=== PATIENT | male | born 1950 | race Caucasian/White ===

== ENCOUNTER → 2020-09-30 08:33 | Outpatient (BNVA) | payer MEDICARE, BC, SELFPAY | PROVIDERS: PCP Family Medicine; Referring Provider Physician Assistant Medical; Visit Provider Psychiatry & Neurology Neurology | DX: M79.602 Pain in left arm (principal); R25.1 Tremor, unspecified; G43.109 Migraine with aura, not intractable, without status migrainosus; R29.2 Abnormal reflex; I10 Essential (primary) hypertension; E78.5 Hyperlipidemia, unspecified; R73.03 Prediabetes | CPT/HCPCS: 99205; G2212 ==

== ENCOUNTER → 2021-07-27 12:15 | Outpatient (BNVA) | payer MEDICARE, BC, SELFPAY | PROVIDERS: PCP Family Medicine; Referring Provider Family Medicine; Visit Provider Psychiatry & Neurology Neurology | DX: G43.109 Migraine with aura, not intractable, without status migrainosus (principal); R25.1 Tremor, unspecified; I10 Essential (primary) hypertension | CPT/HCPCS: 99214 ==

== ENCOUNTER → 2022-02-24 13:22 | Outpatient (BNVA) | payer MEDICARE, BC, SELFPAY | PROVIDERS: PCP Family Medicine; Referring Provider Family Medicine; Visit Provider Psychiatry & Neurology Neurology | DX: R62.7 Adult failure to thrive (principal); R42 Dizziness and giddiness; F07.81 Postconcussional syndrome; R25.1 Tremor, unspecified; G43.109 Migraine with aura, not intractable, without status migrainosus | CPT/HCPCS: 99215; G2212 ==

== ENCOUNTER → 2022-05-17 13:06 | Outpatient (BNVA) | payer MEDICARE, BC, SELFPAY | PROVIDERS: PCP Family Medicine; Referring Provider Family Medicine; Visit Provider Psychiatry & Neurology Neurology | DX: M50.022 Cervical disc disorder at C5-C6 level with myelopathy (principal); M48.061 Spinal stenosis, lumbar region without neurogenic claudication; R29.6 Repeated falls; R25.1 Tremor, unspecified; R55 Syncope and collapse; F07.81 Postconcussional syndrome | CPT/HCPCS: 99215 ==

== ENCOUNTER 2022-06-03 08:27 | Outpatient (CLI) | payer MEDICARE, BC, SELFPAY ==
--- NOTE | 2022-06-03 08:15 | RT.EKG_ITS ---
APPROVED REPORT Exam: Resting ECG Reason for Exam: SVT Patient Location: O HR:68 bpm ECG Measurements Heart Rate 68 AXIS AL [id number] P [id number] QRSd 95 QRS 85 QT 413 T 52 QTc 440 Conclusion Sinus rhythm Borderline right axis deviation...QRS axis ( 81, 90) Late transition
== END 2022-06-03 08:28 | disposition home or self-care (01) ==
LOC: DI.CARD 08:28
PROVIDERS: PCP Family Medicine; Visit Provider Internal Medicine Cardiovascular Disease
DX: I47.1 Supraventricular tachycardia (principal); R55 Syncope and collapse
CPT/HCPCS: 93010

== ENCOUNTER → 2022-06-03 11:14 | Outpatient (BNVA) | payer MEDICARE, BC, SELFPAY | PROVIDERS: PCP Family Medicine; Referring Provider Family Medicine; Visit Provider Internal Medicine Cardiovascular Disease | DX: I50.30 Unspecified diastolic (congestive) heart failure (principal); I47.1 Supraventricular tachycardia; I89.0 Lymphedema, not elsewhere classified | CPT/HCPCS: 93005; 99203; 99214 ==

== ENCOUNTER → 2022-11-22 13:05 | Outpatient (BNVA) | payer MEDICARE, BC, SELFPAY | PROVIDERS: PCP Family Medicine; Referring Provider Family Medicine; Visit Provider Psychiatry & Neurology Neurology | DX: R26.89 Other abnormalities of gait and mobility (principal); M48.061 Spinal stenosis, lumbar region without neurogenic claudication; Z87.820 Personal history of traumatic brain injury; G43.109 Migraine with aura, not intractable, without status migrainosus; R25.1 Tremor, unspecified; R55 Syncope and collapse | CPT/HCPCS: 99214 ==

== ENCOUNTER → 2023-03-09 11:10 | Outpatient (BNVA) | payer MEDICARE, BC, SELFPAY | PROVIDERS: PCP Family Medicine; Referring Provider Family Medicine; Visit Provider Internal Medicine Cardiovascular Disease | DX: I11.0 Hypertensive heart disease with heart failure (principal); I50.30 Unspecified diastolic (congestive) heart failure | CPT/HCPCS: 99213 ==

== ENCOUNTER → 2023-04-04 14:30 | Outpatient (BNVA) | payer MEDICARE, BC, SELFPAY | PROVIDERS: PCP Family Medicine; Referring Provider Family Medicine; Visit Provider Psychiatry & Neurology Neurology | DX: G43.109 Migraine with aura, not intractable, without status migrainosus (principal); R25.1 Tremor, unspecified; R55 Syncope and collapse; R26.89 Other abnormalities of gait and mobility; Z87.820 Personal history of traumatic brain injury; R35.1 Nocturia; G95.9 Disease of spinal cord, unspecified | CPT/HCPCS: 99214 ==

== ENCOUNTER → 2023-07-04 12:16 | Outpatient (BNVA) | payer MEDICARE, BC, SELFPAY | PROVIDERS: PCP Family Medicine; Visit Provider Psychiatry & Neurology Neurology | DX: G43.109 Migraine with aura, not intractable, without status migrainosus (principal); R55 Syncope and collapse; R25.1 Tremor, unspecified; I10 Essential (primary) hypertension; F07.81 Postconcussional syndrome; G95.9 Disease of spinal cord, unspecified | CPT/HCPCS: 99215 ==

== ENCOUNTER → 2023-10-03 11:02 | Outpatient (BNVA) | payer MEDICARE, BC, SELFPAY | PROVIDERS: PCP Family Medicine; Referring Provider Family Medicine; Visit Provider Psychiatry & Neurology Neurology | DX: G43.109 Migraine with aura, not intractable, without status migrainosus (principal); R25.1 Tremor, unspecified; R55 Syncope and collapse; F07.81 Postconcussional syndrome; G95.9 Disease of spinal cord, unspecified | CPT/HCPCS: 99215 ==

== ENCOUNTER → 2023-12-06 12:44 | Outpatient (BNVA) | payer MEDICARE, BC, SELFPAY | PROVIDERS: PCP Family Medicine; Referring Provider Family Medicine; Visit Provider Psychiatry & Neurology Neurology | DX: F07.81 Postconcussional syndrome (principal); G95.9 Disease of spinal cord, unspecified; G43.109 Migraine with aura, not intractable, without status migrainosus; R25.1 Tremor, unspecified; R55 Syncope and collapse | CPT/HCPCS: 99215 ==

== ENCOUNTER → 2023-12-14 10:51 | Outpatient (BNVA) | payer MEDICARE, BC, SELFPAY | PROVIDERS: PCP Family Medicine; Referring Provider Family Medicine; Visit Provider Nurse Practitioner Gerontology | DX: N40.1 Benign prostatic hyperplasia with lower urinary tract symptoms (principal); R35.1 Nocturia; N13.8 Other obstructive and reflux uropathy; N52.9 Male erectile dysfunction, unspecified | CPT/HCPCS: 51798; 99215 ==

== ENCOUNTER → 2024-01-17 07:12 | Outpatient (BNVA) | payer MEDICARE, BC, SELFPAY | PROVIDERS: PCP Family Medicine; Referring Provider Family Medicine; Visit Provider Psychiatry & Neurology Neurology | DX: G43.109 Migraine with aura, not intractable, without status migrainosus (principal); R25.1 Tremor, unspecified; R55 Syncope and collapse; F07.81 Postconcussional syndrome; G95.9 Disease of spinal cord, unspecified | CPT/HCPCS: 99215 ==

== ENCOUNTER → 2024-02-06 09:50 | Outpatient (BNVA) | payer MEDICARE, BC, SELFPAY | PROVIDERS: PCP Family Medicine; Referring Provider Family Medicine; Visit Provider Physician Assistant Surgical | DX: G47.33 Obstructive sleep apnea (adult) (pediatric) (principal); R06.09 Other forms of dyspnea | CPT/HCPCS: 99215 ==

== ENCOUNTER → 2024-04-17 14:46 | Outpatient (BNVA) | payer MEDICARE, BC, SELFPAY | PROVIDERS: PCP Family Medicine; Referring Provider Family Medicine; Visit Provider Psychiatry & Neurology Neurology | DX: G43.109 Migraine with aura, not intractable, without status migrainosus (principal); F07.81 Postconcussional syndrome; G95.9 Disease of spinal cord, unspecified; R25.1 Tremor, unspecified; R55 Syncope and collapse | CPT/HCPCS: 99215 ==

== ENCOUNTER → 2024-04-18 10:31 | Outpatient (BNVA) | payer MEDICARE, BC, SELFPAY | PROVIDERS: PCP Family Medicine; Referring Provider Family Medicine; Visit Provider Physician Assistant Surgical | DX: G47.33 Obstructive sleep apnea (adult) (pediatric) (principal); R06.09 Other forms of dyspnea | CPT/HCPCS: 99214 ==

== ENCOUNTER 2024-04-25 08:39 | Outpatient (CLI) | payer MEDICARE, BC, SELFPAY ==
--- NOTE | 2024-04-25 08:30 | RT.EKG_ITS ---
APPROVED REPORT Exam: Resting ECG Reason for Exam: SVT Patient Location: O HR:66 bpm ECG Measurements Heart Rate 66 AXIS GA 274 P 166 QRSd 112 QRS 58 QT 413 T 66 QTc 433 Conclusion Sinus or ectopic atrial rhythm...P axis (-45,135) First-degree AV block
== END 2024-04-25 08:40 | disposition home or self-care (01) ==
LOC: DI.CARD 08:39
PROVIDERS: PCP Family Medicine; Visit Provider Internal Medicine Cardiovascular Disease
DX: R06.09 Other forms of dyspnea (principal); I47.10 Supraventricular tachycardia, unspecified
CPT/HCPCS: 93010

== ENCOUNTER → 2024-04-25 10:52 | Outpatient (BNVA) | payer MEDICARE, BC, SELFPAY | PROVIDERS: PCP Family Medicine; Visit Provider Internal Medicine Cardiovascular Disease | DX: I44.0 Atrioventricular block, first degree (principal); R06.09 Other forms of dyspnea; I50.30 Unspecified diastolic (congestive) heart failure | CPT/HCPCS: 93005; 99213 ==

== ENCOUNTER → 2024-06-13 10:02 | Outpatient (BNVA) | payer MEDICARE, BC, SELFPAY | PROVIDERS: PCP Family Medicine; Referring Provider Family Medicine; Visit Provider Nurse Practitioner Gerontology | DX: N40.1 Benign prostatic hyperplasia with lower urinary tract symptoms (principal); N13.8 Other obstructive and reflux uropathy; R35.1 Nocturia; R35.0 Frequency of micturition; N52.9 Male erectile dysfunction, unspecified | CPT/HCPCS: 51798; 99214 ==

== ENCOUNTER → 2024-08-29 13:56 | Outpatient (BNVA) | payer MEDICARE, BC, SELFPAY | PROVIDERS: PCP Family Medicine; Referring Provider Family Medicine; Visit Provider Nurse Practitioner Gerontology | DX: N40.1 Benign prostatic hyperplasia with lower urinary tract symptoms (principal); N13.8 Other obstructive and reflux uropathy; N39.0 Urinary tract infection, site not specified | CPT/HCPCS: 99213 ==

== ENCOUNTER → 2024-09-24 08:00 | Outpatient (BNVA) | payer MEDICARE, BC, SELFPAY | PROVIDERS: PCP Family Medicine; Referring Provider Family Medicine; Visit Provider Nurse Practitioner Gerontology | DX: N40.1 Benign prostatic hyperplasia with lower urinary tract symptoms (principal); N13.8 Other obstructive and reflux uropathy; R33.9 Retention of urine, unspecified; N28.1 Cyst of kidney, acquired; N39.0 Urinary tract infection, site not specified | CPT/HCPCS: 99213 ==

== ENCOUNTER 2024-10-06 13:58 | Inpatient (IN) | payer MEDICARE, BC, SELFPAY ==
[2024-10-06] VITALS (9 sets, daily range): BP systolic 130–172; BP diastolic 61–110; PULSE 63–77; RESP 3–20; TEMP 35.2–35.7; O2SAT 92–97
--- NOTE | 2024-10-06 | DI.CT_ITS ---
Exam(s) CT CHEST WO EXAM: CT CHEST WO CLINICAL HISTORY: failed outpatient pneumonia regimen. TECHNIQUE: Multi planar reconstructions were performed. CONTRAST MATERIAL: None COMPARISON: No exams were available for comparison FINDINGS: CHEST: LUNGS: There are extensive ground-glass and confluent infiltrates throughout both lungs involving all lobes and there are also moderate-large size bilateral non loculated appearing pleural effusions. T here is some volume loss in basal segments of both lower lobes related to the pleural effusions. The re is some calcification within basal segments of the right lower lobe. MEDIASTINUM: Slightly prominent hilar lymph nodes. Some lymph nodes in the right hilum are calcified . There is also noncalcified subcarinal adenopathy. There is no adenopathy in the anterior mediasti nal fat. There are multiple small sub cm lymph nodes are noted in the supraclavicular regions on bot h sides the neck. There is no axillary adenopathy. CARDIAC: Heart size is upper normal. There is no pericardial effusion.Caliber of the thoracic aorta is within normal limits. VISUALIZED UPPER ABDOMEN:No adrenal masses. No splenomegaly. Partially included kidneys reveal a 2. 5 cm benign appearing cyst in left kidney. Gallbladder appears moderately distended but not obviousl y edematous. Gallbladder is only partially included in the field of view. OSSEOUS: No significant osseous lesions.No fractures.. IMPRESSION: 1. There are stents of bilateral pulmonary infiltrates involving all lobes both lungs. Also moderate -large bilateral non loculated pleural effusions. 2. There are enlarged subcarinal lymph nodes.. There are also multiple small sub cm supraclavicular lymph nodes. No axillary adenopathy evident. Report discuss by phone with the referring hospitalist 10/06/2024 at 5:40 p.m. RADIATION DOSE DELIVERED: 631.32mGy.cm Total DLP DATA REPOSITORY: All CT scans at this facility are submitted to the National Radiology Data Registry (NRDR) Dose Index Registry (DIR) with the [employer] (ACR). RADIATION OPTIMIZATION: All CT scans at this facility use at least one of these dose optimization te chniques: automated exposure control; mA and/or kV adjustment per patient size (includes targeted exa ms where dose is matched to clinical indication); or iterative reconstruction.
--- NOTE | 2024-10-06 15:34 | HPE_ITS ---
Date of service: 10/06/24 Time of Service: 15:35 Assessment and Plan Assessment and plan (1) Incomplete emptying of bladder: Status: Acute Assessment and plan: In reviewing his chart it was noted that he has had multiple UTIs and was seen by urology telehealth. I will repeat a urinalysis with a reflex culture. (2) Hypertension: Assessment and plan: Awaiting an updated home med list. His vital signs at the other institution were a blood pressure of 150/73. (3) Hyperkalemia: Status: Acute Assessment and plan: Started on Lokelma will recheck in the a.m. I do not see a copy of his EKG but he will be put on telemetry (4) Pneumonia: Status: Acute Assessment and plan: Patient appears to have failed outpatient therapy which was Augmentin and doxycycline. While he was in the other ED he was given Rocephin and doxycycline. In reviewing up to date recommendation is to broaden coverage to cefepime and ciprofloxacin so this we done also order Legionella and mycoplasma pneumonia screenings. I do not see a viral screen for flu and COVID either so I am sure this was done but is not in the chart but we need to repeated. There is also recommendation for follow-up CT if failed outpatient therapy. This has been ordered. Have also ordered a sputum and blood cultures. (5) JUNIOR (acute kidney injury): Status: Acute Assessment and plan: Will give gentle rehydration and monitor for improvements. History of Present Illness History of Present Illness Chief Complaint: SOB Narrative: This is a 74-year-old gentleman who was at [facility] but was transferred down here due to no bed availability at that facility. In reviewing the HPI is a 74-year-old gentleman with multiple medical problems including severe COPD reflux Parkinson's who presented to the hospital 2 days ago with increasing cough. Patient was treated for pneumonia with Augmentin and Doxy wh ich he states he has been taking. Unfortunately this morning he developed worsening shortness of breath and came back into the ED for evaluation and treatment. In reviewing the diagnostic information the patient was noted to have hyperkalemia with a potassium of 5.8 without benign white count mild anemia with a hemoglobin of 10.8 hematocrit 33.3 and elevated BUN to creatinine ratio of 39/1.33 and a normal procalcitonin. I do not see any imaging documentation but he was transferred down here after given Rocephin and Doxy again via IV. Patient does give a fairly linear history but is very confused at times. Unfortunately his is not available to augment this history at this point. Review of Systems All systems reviewed & are unremarkable except as noted in HPI and below PFSH All Active Problems (Updated 10/06/24 @ 15:44 by Abelardo Dewey MD) JUNIOR (acute kidney injury) (Acute) Pneumonia (Acute) Hyperkalemia (Acute) Renal cyst (Acute) Incomplete emptying of bladder (Acute) Recurrent UTI (Acute) Dyspnea on exertion (Acute) Hypoventilation (Acute) Cerebellar atrophy (Acute) Autonomic orthostatic hypotension (Acute) BPH w urinary obs/LUTS (Acute) Benign paroxysmal vertigo (Acute) Anemia (Chronic) Sensorineural hearing loss, bilateral (Acute) Dizziness (Acute) Memory changes (Acute) Neuropathy, idiopathic (Acute) IBS (irritable bowel syndrome) (Chronic) Frequent falls (Acute) Diplopia (Acute) Localized edema (Acute) Nail dystrophy (Acute) Lumbar stenosis (Acute) Post concussion syndrome (Acute) Aug and Dec, 2021 Syncope (Chronic) Cervical myelopathy (Acute) Tremor (Acute) Migraine aura without headache (Acute) Left arm pain (Acute) Babinski reflex (Acute) Medical History Oral cancer Spinal stenosis in cervical region Snoring Neck pain Meniscus, lateral, derangement Amnesia Talipes planovalgus Sustained SVT PTSD (post-traumatic stress disorder) Parkinsonism Obstructive sleep apnea History of neck pain MRSA (methicillin resistant Staphylococcus aureus) Hypomania Hydronephrosis Essential tremor Erectile dysfunction Chronic deep venous thrombosis Cervical spondylosis with myelopathy Cervical radiculopathy Bronchospasm Retrograde amnesia Depression Migraine headache with aura Impaired glucose tolerance Nocturia Achilles tendinitis Degeneration of intervertebral disc of lumbosacral region Microscopic hematuria History of IBS GERD (gastroesophageal reflux disease) Exercise induced bronchospasm Lymphedema Deep vein thrombosis Diastolic heart failure Supraventricular tachycardia Hypertension BPPV (benign paroxysmal positional vertigo) Chronic posttraumatic stress disorder Anxiety Bipolar disorder Anemia of chronic disease Obesity Hyperlipidemia Hypothyroidism Multiple lipomas Malignant tumor of tongue Surgical [place] [facility] [place] of esophagogastroduodenoscopy (EGD) History of excision of pilonidal cyst 1964 History of back surgery 1989 History of excision of lesion tongue x 2 2012 History of orthopedic surgery 07/24/2013 S/P total knee arthroplasty Hx of colonoscopy 10/07/19 History of tonsillectomy H/O hernia repair Artificial knee joint present R TKA 2014 Family History Father , AT 73 KIDNEY FAILURE Bladder cancer Renal failure Stomach ulcer Mother , AT 85 Arthritis Migraine Obesity Son Migraine Sister Arthritis Social History Smoking/Tobacco Use Status: Former Tobacco Use Quit Date: 08/21/88 Tobacco: How many years used: 30 Smoking risk assessment performed?: Yes Alcohol Intake: former Details: QUIT 2007 Drug use: Never Household members: spouse Housing: house Number of Children: 3 number of grandchildren: 5 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 Meds Allergies and Home Medications Allergies Allergy/AdvReac Type Severity Reaction Status Date / Time insect venom Allergy Severe Other (See Verified 08/29/24 14:37 Comment) lithium Allergy Intermediate Diarrhea Verified 08/29/24 14:37 oxycodone Allergy Unknown Other (See Verified 08/29/24 14:37 Comment) promethazine (From Phenergan) Allergy Unknown Other (See Verified 08/29/24 14:37 Comment) topiramate Allergy Unknown Other (See Verified 08/29/24 14:37 Comment) finasteride (From Proscar) AdvReac Severe breast Verified 09/24/24 08:07 tissue overgrowth fluoxetine (From Prozac) AdvReac suicidal Verified 08/29/24 14:37 lorazepam (From Ativan) AdvReac amnesia Verified 08/29/24 14:37 prochlorperazine (From AdvReac altered Verified 08/29/24 14:37 Compazine) conciousness sertraline (From Zoloft) AdvReac petechiae Verified 08/29/24 14:37 Home Medications ?Medication ?Instructions ?Recorded ?Confirmed ?Type divalproex 500 mg tablet,extended 1,500 mg PO DAILY 08/04/20 10/06/24 History release 24 hr epinephrine 0.3 mg/0.3 mL 0.3 mg IM Q5-15M PRN 08/04/20 10/06/24 History injection, auto-injector levothyroxine 150 mcg tablet 150 mcg PO DAILY 08/04/20 10/06/24 History red yeast rice 600 mg tablet 600 mg PO BID 08/04/20 10/06/24 History erenumab-aooe 70 mg/mL 140 mg subcut QMONTH 07/27/21 10/06/24 History subcutaneous auto-injector (Aimovig Autoinjector) furosemide 40 mg tablet 40 mg PO DAILY 07/27/21 10/06/24 History metoprolol succinate 100 mg 100 mg PO DAILY 07/27/21 10/06/24 History tablet,extended release 24 hr losartan 25 mg tablet 25 mg PO DAILY 09/02/22 10/06/24 History lamotrigine 100 mg tablet 250 mg PO DAILY 09/07/23 10/06/24 History cholecalciferol (vitamin D3) 25 25 mcg PO DAILY 12/06/23 10/06/24 History mcg (1,000 unit) capsule cyanocobalamin (vitamin B-12) 1,000 mcg PO DAILY 02/06/24 10/06/24 History 1,000 mcg tablet (Vitamin B-12) sumatriptan succinate 100 mg tablet See Rx Instructions PO .COMPLEX #9 04/17/24 10/06/24 Rx tabs levalbuterol tartrate 45 2 inh inhalation Q6H #15 grams 04/18/24 10/06/24 Rx mcg/actuation aerosol inhaler umeclidinium 62.5 mcg/actuation 1 inh inhalation DAILY #30 ea 04/24/24 10/06/24 Rx blister powder for inhalation (Incruse Ellipta) hdeqlka-csikhupydywkq-gbvegczr 250 1 tab PO Q6H PRN 04/25/24 10/06/24 History mg-250 mg-65 mg tablet (Excedrin Extra Strength) sildenafil (pulm.hypertension) 20 20 - 60 mg (1 - 3 x 20 mg) PO 05/13/24 10/06/24 Rx mg tablet .COMPLEX PRN For ED #30 tabs alfuzosin 10 mg tablet,extended 10 mg PO DAILY #90 tabs 07/01/24 10/06/24 Rx release 24 hr albuterol sulfate 90 mcg/actuation 2 puff inhalation QID PRN 10/03/24 10/06/24 Rx aerosol inhaler shortness of breath or wheezing #8.5 grams clotrimazole 1 % topical cream 1 applic topical BID PRN itch #45 10/03/24 10/06/24 Rx grams Exam Narrative Exam Narrative: Head eyes ears nose and throat: Normocephalic atraumatic mucous membranes moist oropharynx clear extract motions are intact pupils are equal round and reactive to light he does have bilateral senile arcus Neck: No lymphadenopathy no JVD no thyromegaly Cardiovascular: Regular rate and rhythm no murmur rubs or gallops Abdomen: Soft nontender nondistended bowel sounds active Extremities: He does have bilateral venous stasis changes as well as 1-2+ edema in his lower extremities Neurologic: Cranial nerves II through XII intact as tested reflexes in upper lower extremity normal as tested Pulm: Bilateral wheeze but no significant accessory muscle use is able to speak in complete sentences Results Last Vital Signs Temp 35.4 C L 10/06/24 14:42 Pulse 63 10/06/24 14:42 Resp 20 10/06/24 14:42 BP 144/61 H 10/06/24 14:42 Pulse Ox 97 10/06/24 14:42 Time Spent Time spent with Patient: 40-54 minutes Time was spent: preparing to see the patient(eg.review tests), obtaining and/or reviewing separately otained hiistory, ordering medications,tests, procedures, referring, communicating with other health grounds caretaker, indepentently interpreting results, counseling the patient and care coordination
[2024-10-06] MEDS: CEFEPIME 2 GM in Normal Saline 100 ML IVPB (17:24)
[2024-10-06] MEDS: Enoxaparin 40 MG/0.4 ML SYR SC (17:25)
[2024-10-06] MEDS: methylPREDNISolone SUCC 40 MG VIAL IVP (17:26)
--- NOTE | 2024-10-06 17:42 | W.PC.ACHO ---
Registration Status: Primary Language: Preferred Language: Medical / Surgical History (Last Reviewed 04/25/24 @ 11:10 by Ammy Cortez MD) Oral cancer Spinal stenosis in cervical region Snoring Neck pain Meniscus, lateral, derangement Amnesia Talipes planovalgus Sustained SVT PTSD (post-traumatic stress disorder) Parkinsonism Obstructive sleep apnea History of neck pain MRSA (methicillin resistant Staphylococcus aureus) Hypomania Hydronephrosis Essential tremor Erectile dysfunction Chronic deep venous thrombosis Cervical spondylosis with myelopathy Cervical radiculopathy Bronchospasm Retrograde amnesia Depression Migraine headache with aura Impaired glucose tolerance Nocturia Achilles tendinitis Degeneration of intervertebral disc of lumbosacral region Microscopic hematuria History of IBS GERD (gastroesophageal reflux disease) Exercise induced bronchospasm Lymphedema Deep vein thrombosis Diastolic heart failure Supraventricular tachycardia Hypertension BPPV (benign paroxysmal positional vertigo) Chronic posttraumatic stress disorder Anxiety Bipolar disorder Anemia of chronic disease Obesity Hyperlipidemia Hypothyroidism Multiple lipomas Malignant tumor of tongue (Last Reviewed 04/25/24 @ 11:10 by Ammy Cortez MD) H/O cervical spine surgery History of esophagogastroduodenoscopy (EGD) History of excision of pilonidal cyst History of back surgery History of excision of lesion History of orthopedic surgery S/P total knee arthroplasty Hx of colonoscopy History of tonsillectomy H/O hernia repair Artificial knee joint present Most Recent Vital Signs Temperature 35.4 C L 10/06/24 14:42 Temperature Source Tympanic 10/06/24 14:26 Pulse 63 10/06/24 14:42 Pulse Rhythm Regular 10/06/24 14:42 Respiratory Rate 20 10/06/24 14:42 Respiratory Effort Labored 10/06/24 14:42 Respiratory Depth Deep 10/06/24 14:42 Respiratory Pattern Normal 10/06/24 14:42 Blood Pressure 144/61 H 10/06/24 14:42 Pulse Oximetry 97 10/06/24 14:42 Oxygen Delivery Method Nasal Cannula 10/06/24 14:42 Oxygen Flow Rate 2 10/06/24 14:42 Pain Level 6 10/06/24 14:42 Allergies insect venom Allergy (Severe, Verified 08/29/24 14:37) Other (See Comment) lithium Allergy (Intermediate, Verified 08/29/24 14:37) Diarrhea abdominal pain oxycodone Allergy (Unknown, Verified 08/29/24 14:37) Other (See Comment) promethazine (From Phenergan) Allergy (Unknown, Verified 08/29/24 14:37) Other (See Comment) topiramate Allergy (Unknown, Verified 08/29/24 14:37) Other (See Comment) per PCP record finasteride (From Proscar) Adverse Reaction (Severe, Verified 09/24/24 08:07) breast tissue overgrowth [place] [facility] [place] fluoxetine (From Prozac) Adverse Reaction (Verified 08/29/24 14:37) suicidal lorazepam (From Ativan) Adverse Reaction (Verified 08/29/24 14:37) amnesia prochlorperazine (From Compazine) Adverse Reaction (Verified 08/29/24 14:37) altered conciousness sertraline (From Zoloft) Adverse Reaction (Verified 08/29/24 14:37) petechiae IV IV Catheter Type [left foaearm Saline Lock ] IV Catheter Gauge [left 20 foaearm] Diet Orders Category Date Time Status Regular/Normal [DIET] Nutrition 10/06/24 Dinner Active 10/06/24 15:45 Blood Culture - Pending Blood 10/06/24 15:37 Blood Culture - Pending Blood Intake and Output - 24 Hour Total 10/06/24 thru 10/06/24 16:43 Intake Total 10 Balance 10 Weight 139.4 kg Intake: IV 10 Other: Urine Appearance Clear Falls Risk Assessment History of Falls Previous History 10/06/24 14:42 Contributing Factors Unstable,Impairments, 10/06/24 14:42 Incontinence Ambulatory Aids Uses ambulatory device 10/06/24 14:42 Tubes/Lines W/no contributing factors 10/06/24 14:42 Gait Evaluation W/any additional score 10/06/24 14:42 Cognition No cognitive impairment 10/06/24 14:42 Fall Total Score 69 10/06/24 14:42 Level of Risk High Risk 10/06/24 14:42 Problems (Last Reviewed 04/25/24 @ 11:10 by Ammy Cortez MD) JUNIOR (acute kidney injury) (Acute) Pneumonia (Acute) Hyperkalemia (Acute) Incomplete emptying of bladder (Acute) v v v v v v v v v Sending and/or Receiving Nurses: Please use comment section below to note any information pertinent to the patient hand-off not included above. Information / Comments: Report received from: Leonarda Santiago RN [id number] (Nurse at [facility])
--- NOTE | 2024-10-06 17:44 | HPE_ITS ---
[facility] All Active Problems (Updated 10/07/24 @ 16:10 by Abelardo Dewey MD) Alcohol abuse (Chronic) Mitral stenosis (Acute) Moderate mitral regurgitation (Acute) Severe tricuspid regurgitation (Acute) Fibrillation, atrial (Chronic) Hydrothorax (Acute) Cholelithiases (Acute) Cirrhosis (Acute) Ascites (Acute) Total bilirubin, elevated (Acute) Elevated d-dimer (Acute) Elevated brain natriuretic peptide (BNP) level (Acute) Elevated MCV (Acute) Thrombocytopenia (Chronic) Elevated INR (Acute) Pleural effusion (Acute) Respiratory distress (Acute) JUNIOR (acute kidney injury) (Acute) Pneumonia (Acute) Hyperkalemia (Acute) Renal cyst (Acute) Incomplete emptying of bladder (Acute) Recurrent UTI (Acute) Dyspnea on exertion (Acute) Hypoventilation (Acute) Cerebellar atrophy (Acute) Autonomic orthostatic hypotension (Acute) BPH w urinary obs/LUTS (Acute) Benign paroxysmal vertigo (Acute) Anemia (Chronic) Sensorineural hearing loss, bilateral (Acute) Dizziness (Acute) Memory changes (Acute) Neuropathy, idiopathic (Acute) IBS (irritable bowel syndrome) (Chronic) Frequent falls (Acute) Diplopia (Acute) Localized edema (Acute) Nail dystrophy (Acute) Lumbar stenosis (Acute) Post concussion syndrome (Acute) Aug and Dec, 2021 Syncope (Chronic) Cervical myelopathy (Acute) Tremor (Acute) Migraine aura without headache (Acute) Left arm pain (Acute) Babinski reflex (Acute) Medical History Oral cancer Spinal stenosis in cervical region Snoring Neck pain Meniscus, lateral, derangement Amnesia Talipes planovalgus Sustained SVT PTSD (post-traumatic stress disorder) Parkinsonism Obstructive sleep apnea History of neck pain MRSA (methicillin resistant Staphylococcus aureus) Hypomania Hydronephrosis Essential tremor Erectile dysfunction Chronic deep venous thrombosis Cervical spondylosis with myelopathy Cervical radiculopathy Bronchospasm Retrograde amnesia Depression Migraine headache with aura Impaired glucose tolerance Nocturia Achilles tendinitis Degeneration of intervertebral disc of lumbosacral region Microscopic hematuria History of IBS GERD (gastroesophageal reflux disease) Exercise induced bronchospasm Lymphedema Deep vein thrombosis Diastolic heart failure Supraventricular tachycardia Hypertension BPPV (benign paroxysmal positional vertigo) Chronic posttraumatic stress disorder Anxiety Bipolar disorder Anemia of chronic disease Obesity Hyperlipidemia Hypothyroidism Multiple lipomas Malignant tumor of tongue Surgical History H/O cervical spine surgery [place] [facility] [place] of esophagogastroduodenoscopy (EGD) History of excision of pilonidal cyst 1964 History of back surgery 1988 History of excision of lesion tongue x 2 2012 History of orthopedic surgery 07/24/2013 S/P total knee arthroplasty Hx of colonoscopy 10/07/19 History of tonsillectomy H/O hernia repair Artificial knee joint present R TKA 2014 Family History Father , AT 73 KIDNEY FAILURE Bladder cancer Renal failure Stomach ulcer Mother , AT 85 Arthritis Migraine Obesity Son Migraine Sister Arthritis Social History Smoking/Tobacco Use Status: Former Tobacco Use Quit Date: 08/21/88 Tobacco: How many years used: 30 Smoking risk assessment performed?: Yes Alcohol Intake: former Details: QUIT 2007 Drug use: Never Household members: spouse Housing: house Number of Children: 3 number of grandchildren: 5 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 Meds Allergies and Home Medications Allergies Allergy/AdvReac Type Severity Reaction Status Date / Time insect venom Allergy Severe Other (See Verified 08/29/24 14:37 Comment) lithium Allergy Intermediate Diarrhea Verified 08/29/24 14:37 ciprofloxacin Allergy Mild Skin Rash Verified 10/06/24 19:02 oxycodone Allergy Unknown Other (See Verified 08/29/24 14:37 Comment) promethazine (From Phenergan) Allergy Unknown Other (See Verified 08/29/24 14:37 Comment) topiramate Allergy Unknown Other (See Verified 08/29/24 14:37 Comment) finasteride (From Proscar) AdvReac Severe breast Verified 09/24/24 08:07 tissue overgrowth fluoxetine (From Prozac) AdvReac suicidal Verified 08/29/24 14:37 lorazepam (From Ativan) AdvReac amnesia Verified 08/29/24 14:37 prochlorperazine (From AdvReac altered Verified 08/29/24 14:37 Compazine) conciousness sertraline (From Zoloft) AdvReac petechiae Verified 08/29/24 14:37 Home Medications ?Medication ?Instructions ?Recorded ?Confirmed ?Type divalproex 500 mg tablet,extended 1,500 mg PO DAILY 08/04/20 10/06/24 History release 24 hr epinephrine 0.3 mg/0.3 mL 0.3 mg IM Q5-15M PRN 08/04/20 10/06/24 History injection, auto-injector levothyroxine 150 mcg tablet 150 mcg PO DAILY 08/04/20 10/06/24 History red yeast rice 600 mg tablet 600 mg PO BID 08/04/20 10/06/24 History erenumab-aooe 70 mg/mL 140 mg subcut QMONTH 07/27/21 10/06/24 History subcutaneous auto-injector (Aimovig Autoinjector) furosemide 40 mg tablet 40 mg PO DAILY 07/27/21 10/06/24 History metoprolol succinate 100 mg 100 mg PO DAILY 07/27/21 10/06/24 History tablet,extended release 24 hr losartan 25 mg tablet 25 mg PO DAILY 09/02/22 10/06/24 History lamotrigine 100 mg tablet 250 mg PO DAILY 09/07/23 10/06/24 History cholecalciferol (vitamin D3) 25 25 mcg PO DAILY 12/06/23 10/06/24 History mcg (1,000 unit) capsule cyanocobalamin (vitamin B-12) 1,000 mcg PO DAILY 02/06/24 10/06/24 History 1,000 mcg tablet (Vitamin B-12) umeclidinium 62.5 mcg/actuation 1 inh inhalation DAILY #30 ea 04/24/24 10/06/24 Rx blister powder for inhalation (Incruse Ellipta) rgtqhps-wyhtpgawfswxt-yanlldqy 250 1 tab PO Q6H PRN 04/25/24 10/06/24 History mg-250 mg-65 mg tablet (Excedrin Extra Strength) sildenafil (pulm.hypertension) 20 20 - 60 mg (1 - 3 x 20 mg) PO 05/13/24 10/06/24 Rx mg tablet .COMPLEX PRN For ED #30 tabs alfuzosin 10 mg tablet,extended 10 mg PO DAILY #90 tabs 07/01/24 10/06/24 Rx release 24 hr albuterol sulfate 90 mcg/actuation 2 puff inhalation QID PRN 10/03/24 10/06/24 Rx aerosol inhaler shortness of breath or wheezing #8.5 grams clotrimazole 1 % topical cream 1 applic topical BID PRN itch #45 10/03/24 10/06/24 Rx grams umeclidinium 62.5 mcg-vilanterol 1 inh inhalation DAILY 10/07/24 10/07/24 History 25 mcg/actuation powdr for inhalation (Anoro Ellipta) Results Labs 10/08/24 06:30 10/08/24 06:30 Last Vital Signs Temp 35.4 C L 10/06/24 14:42 Pulse 63 10/06/24 14:42 Resp 20 10/06/24 14:42 BP 144/61 H 10/06/24 14:42 Pulse Ox 97 10/06/24 14:42
[2024-10-06] MEDS: CIPROFLOXACIN 400 MG/200 ML BAG 200 MG IVPB (18:05)
--- NOTE | 2024-10-06 18:56 | NUR.NOTE ---
Nursing Note:Pharmacy contacted regarding patient medication list from home, 2 anti convulsants ordered, Lamictal and Depakote. Per pharmacist, this combination appears to be appropriate.
[2024-10-06 18:57] LABS: Bilirubin Negative (Negative); Blood Negative (Negative); Clarity Clear (Clear); Glucose Negative (Negative); Ketones Negative (Negative); Leukocyte Esterase Negative (Negative); Nitrite Negative (Negative); Specific Gravity 1.025 (1.005-1.025); Urobilinogen 0.2 mg/dL (Up to 0.2)
[2024-10-06] MEDS: diphenhydrAMINE 50 MG/ML VIAL IVP (20:46)
[2024-10-06] MEDS: Azithromycin 250 MG TAB 500 MG PO (20:46)
[2024-10-06] MEDS: Normal Saline Flush 10 ML SYR IVP (20:46)
[2024-10-06] MEDS: Albuterol/Ipratropium 3 ML UPD VIAL UPD ×2 (20:52→23:39)
[2024-10-06] MEDS: Sodium Zirconium Cyclosilicate 10 GM PKT PO (23:06)
[2024-10-07] VITALS (7 sets, daily range): BP systolic 130–177; BP diastolic 69–100; PULSE 75–81; RESP 16–22; TEMP 36–36.6; O2SAT 89–93
[2024-10-07] MEDS: CEFEPIME 2 GM in Normal Saline 100 ML IVPB ×4 (01:18→23:42)
[2024-10-07] MEDS: methylPREDNISolone SUCC 40 MG VIAL IVP ×2 (04:48→16:06)
[2024-10-07] MEDS: Normal Saline Flush 10 ML SYR IVP ×4 (04:49→23:43)
[2024-10-07] MEDS: Sodium Zirconium Cyclosilicate 10 GM PKT PO ×3 (05:49→23:42)
[2024-10-07] MEDS: Levothyroxine 150 MCG TAB PO (05:49)
[2024-10-07 06:31] LABS: Abs Immature Grans 0.03 10^3/uL (0.0-0.06); Absolute Monocyte Count 0.05 10^3/uL (0.1-0.8); Absolute Neutrophil Count 3.76 10^3/uL (1.2-6.7); HCT 32.7 % (40.0-50.0); HGB 10.8 g/dL (13.5-17.5); Immature Grans % 0.7 %; MCH 30.3 pg (27.0-33.0); MCV 92 fL (80-95); MPV 9.6 fL (8.0-11.0); Monocytes % 1.2 %; Neutrophils % 93.1 %; Nucleated RBC 2.2 % (0.0-0.3); Platelet Count 167 10^3/uL (130-400); RBC 3.56 10^6/uL (4.36-5.78); RDW 15.8 % (11.8-14.1); RDW-SD 53.5 fL; WBC 4.04 10^3/uL (4.4-10.8)
[2024-10-07 06:43] LABS: ALT 23 U/L (16-63); AST 18 U/L (15-37); Albumin 2.8 g/dL (3.4-5.0); Alkaline Phosphatase 147 U/L (46-116); Anion Gap 6.4 mmol/L (3-11); BUN 41 mg/dL (7-18); Bilirubin, Total 0.34 mg/dL (0.2-1.0); C-Reactive Protein 5.47 mg/dL (<or=0.5); CO2 28.6 mmol/L (21.0-32.0); CREATININE 1.3 mg/dL (0.70-1.30); Calcium 9.8 mg/dL (8.5-10.1); Chloride 104 mmol/L (98-107); Estimated GFR 58.37 (mL/min/1.73m2); Glucose 124 mg/dL (74-106); Potassium 5.6 mmol/L (3.5-5.1); Sodium 139 mmol/L (136-145); Total Protein 8.1 g/dL (6.4-8.2)
[2024-10-07 07:48] LABS: Procalcitonin < 0.10 ng/mL
[2024-10-07] MEDS: Cyanocobalamin 100 MCG TABLET 1000 MCG PO (08:15)
[2024-10-07] MEDS: Losartan 25 MG TAB PO (08:16)
[2024-10-07] MEDS: Cholecalciferol (Vitamin D3) 1,000 UNIT TAB 1000 UNITS PO (08:16)
[2024-10-07] MEDS: Azithromycin 250 MG TAB PO (08:16)
[2024-10-07] MEDS: Divalproex Sodium 500 MG TAB.ER.24H 1500 MG PO (08:16)
[2024-10-07] MEDS: Metoprolol CR 100 MG TABCR PO (08:16)
[2024-10-07] MEDS: Tamsulosin 0.4 MG CAPCR PO (08:16)
[2024-10-07] MEDS: lamoTRIgine 100 MG TAB 250 MG PO (08:17)
[2024-10-07] MEDS: Umeclidinium 7 CAP INHALER IH (08:38)
--- NOTE | 2024-10-07 09:17 | PDOC.CMIN ---
Date of service: 10/07/24 Time of Service: 09:17 Care Management Initial Assmt Initial Assessment Reason for Hospitalization: Pneumonia Functional Status/Living Situation Patient Presentation: Yousuf was sitting up in bed when CM met with him. He was slow to respond to questions and gave answers that were clearly not accurate. He informed CM that he had 2 children. When asked where they live he stated that they live at home with him and his . He stated they were 2 years old. His children are, in fact adults who live independently. Yousuf was admitted with COPD. Hew is requiring 2-3 L/min of nasal oxygen to maintain his oxygen saturation in the 90s. Per staff, he appears to be having hallucinations and does exhibit parkinsons type symptoms. Yousuf is scheduled to have a PT evaluation today. Town of Residence: [place], [place] Resides with: Spouse (Fabi) Significant Other/Family: Out of area (patient from [place]) Employment Status: Retired Medications Medication Management: No Issues/Barriers identified Advance Directives Advance Directives: Do you have an Advance Directive: N 04/29/22 11:48 AD On File at [facility]: N 04/29/22 11:48 Date Asked 10/06/24 10/06/24 12:49 AD Date Reviewed COLST On File at [facility] COLST Date Scanned Code Status Resuscitation Status Full Code Insurance Coverage/Financial Issues Insurance: Medicare / Care Team Visit Care Team Role Provider Type NATHANIEL MACARIO MD Primary Care Provider NON-[facility] STAFF PHYSICIAN Rosalba Vogt Other Providers GASKET INSPECTOR Donna Eduardo Other Providers GASKET INSPECTOR Trupti Santamaria Other Providers GASKET INSPECTOR Alona Casey RN Other Providers GASKET INSPECTOR Abelardo Dewey MD Admit Provider [facility] STAFF PHYSICIAN Attending Provider Discharge Potential Discharge Needs: PCP F/U Appt Anticipated Barriers to Discharge: None Identified Patient/Family Education Needs: Review discharge instructions, discuss Ask Me Three Transportation: Private vehicle Plan: Anticipate Toy will be discharged home, possibly with new home health services, when medically cleared. He will follow up with his community providers and plan of care and transport with family. CM will follow and continue to assess for discharge needs. Social Determinants of Health Screening Social Determinants of Health last assessed: 10/08/24 Will the Patient Participate in the Screening?: Yes Do you worry about having a steady place to live?: no Problems where you live: no known problems In the past 12 months, have you had to go without electric, gas, oil or water in your home?: no Have you or anyone in your house had to go without enough food to eat?: no Has lack of transportation kept you from medical appointments or from doing things needed for daily living?: no Has anyone in your life made you feel unsafe or unsupported?: no How hard is it for you to pay for the very basics like food, housing, medical care, and heating? Would you say it is:: Not hard at all Do you want help finding or keeping work or a job?: I do not need or want help If for any reason you need help with day-to-day activities such as bathing, preparing meals, shopping, managing finances, etc., do you get the help you need?: I don?t need any help How often do you feel lonely or isolated from those around you?: Often Do you speak a language other than Taiwanese at home?: No Does the patient want assistance with any of the above?: No Health Related Social Needs Health related social needs: feeling lonely/isolated (Z60.8) [facility] All Active Problems (Updated 10/07/24 @ 16:10 by Abelardo Dewey MD) Alcohol abuse (Chronic) Mitral stenosis (Acute) Moderate mitral regurgitation (Acute) Severe tricuspid regurgitation (Acute) Fibrillation, atrial (Chronic) Hydrothorax (Acute) Cholelithiases (Acute) Cirrhosis (Acute) Ascites (Acute) Total bilirubin, elevated (Acute) Elevated d-dimer (Acute) Elevated brain natriuretic peptide (BNP) level (Acute) Elevated MCV (Acute) Thrombocytopenia (Chronic) Elevated INR (Acute) Pleural effusion (Acute) Respiratory distress (Acute) JUNIOR (acute kidney injury) (Acute) Pneumonia (Acute) Hyperkalemia (Acute) Renal cyst (Acute) Incomplete emptying of bladder (Acute) Recurrent UTI (Acute) Dyspnea on exertion (Acute) Hypoventilation (Acute) Cerebellar atrophy (Acute) Autonomic orthostatic hypotension (Acute) BPH w urinary obs/LUTS (Acute) Benign paroxysmal vertigo (Acute) Anemia (Chronic) Sensorineural hearing loss, bilateral (Acute) Dizziness (Acute) Memory changes (Acute) Neuropathy, idiopathic (Acute) IBS (irritable bowel syndrome) (Chronic) Frequent falls (Acute) Diplopia (Acute) Localized edema (Acute) Nail dystrophy (Acute) Lumbar stenosis (Acute) Post concussion syndrome (Acute) Aug and Dec, 2021 Syncope (Chronic) Cervical myelopathy (Acute) Tremor (Acute) Migraine aura without headache (Acute) Left arm pain (Acute) Babinski reflex (Acute) Medical History Oral cancer Spinal stenosis in cervical region Snoring Neck pain Meniscus, lateral, derangement Amnesia Talipes planovalgus Sustained SVT PTSD (post-traumatic stress disorder) Parkinsonism Obstructive sleep apnea History of neck pain MRSA (methicillin resistant Staphylococcus aureus) Hypomania Hydronephrosis Essential tremor Erectile dysfunction Chronic deep venous thrombosis Cervical spondylosis with myelopathy Cervical radiculopathy Bronchospasm Retrograde amnesia Depression Migraine headache with aura Impaired glucose tolerance Nocturia Achilles tendinitis Degeneration of intervertebral disc of lumbosacral region Microscopic hematuria History of IBS GERD (gastroesophageal reflux disease) Exercise induced bronchospasm Lymphedema Deep vein thrombosis Diastolic heart failure Supraventricular tachycardia Hypertension BPPV (benign paroxysmal positional vertigo) Chronic posttraumatic stress disorder Anxiety Bipolar disorder Anemia of chronic disease Obesity Hyperlipidemia Hypothyroidism Multiple lipomas Malignant tumor of tongue Surgical History H/O cervical spine surgery 05/14/2021 [facility] [place] History of esophagogastroduodenoscopy (EGD) History of excision of pilonidal cyst 1964 History of back surgery 1989 History of excision of lesion tongue x 2 2012 History of orthopedic surgery 07/24/2013 S/P total knee arthroplasty Hx of colonoscopy 10/07/19 History of tonsillectomy H/O hernia repair Artificial knee joint present R TKA 2014 Family History Father , AT 73 KIDNEY FAILURE Bladder cancer Renal failure Stomach ulcer Mother , AT 85 Arthritis Migraine Obesity Son Migraine Sister Arthritis Social History Smoking/Tobacco Use Status: Former Tobacco Use Quit Date: 08/21/88 Tobacco: How many years used: 30 Smoking risk assessment performed?: Yes Alcohol Intake: former Details: QUIT 2007 Drug use: Never Household members: spouse Housing: house Number of Children: 3 number of grandchildren: 5 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
--- NOTE | 2024-10-07 10:35 | NUR.NOTE ---
Nursing Note: Walks with walker with PT but uses wheelchair at home due to fear of falling. uses waker and assisters with transfers from wheelchair to recliner. CAROLANN RN
[2024-10-07 11:33] LABS: Bilirubin Negative (Negative); Blood Trace-intact (Negative); Clarity Clear (Clear); Glucose Negative (Negative); Ketones Trace mg/dL (Negative); Leukocyte Esterase Negative (Negative); Nitrite Negative (Negative); Specific Gravity 1.025 (1.005-1.025); Urobilinogen 0.2 mg/dL (Up to 0.2); pH 5.5 (5-8)
[2024-10-07 11:43] LABS: Bacteria Rare HPF (Negative); Crystals Negative HPF (Negative); Epithelial Cells Rare HPF (Negative); Mucus Negative (Negative)
[2024-10-07 11:44] LABS: C & S Indicated? No; Casts 5-10 Hyaline LPF (Negative)
--- NOTE | 2024-10-07 12:55 | W.PM.PROGNOT ---
Date of Service Date of service: 10/07/24 Time of Service: 12:55 Assessment and Plan Assessment and plan (1) Incomplete emptying of bladder: Status: Acute Assessment and plan: In reviewing his chart it was noted that he has had multiple UTIs and was seen by urology telehealth. I will repeat a urinalysis with a reflex culture. 10/07/24 UA was reassuring (2) Hypertension: Assessment and plan: Awaiting an updated home med list. His vital signs at the other institution were a blood pressure of 150/73. 10/07/24 Pt still with some htn (3) Hyperkalemia: Status: Acute Assessment and plan: Started on Lokelma will recheck in the a.m. I do not see a copy of his EKG but he will be put on telemetry (4) Pneumonia: Status: Acute Assessment and plan: Patient appears to have failed outpatient therapy which was Augmentin and doxycycline. While he was in the other ED he was given Rocephin and doxycycline. In reviewing up to date recommendation is to broaden coverage to cefepime and ciprofloxacin so this we done also order Legionella and mycoplasma pneumonia screenings. I do not see a viral screen for flu and COVID either so I am sure this was done but is not in the chart but we need to repeated. There is also recommendation for follow-up CT if failed outpatient therapy. This has been ordered. Have also ordered a sputum and blood cultures. 10/07/24 Per overnight coverage, pt had a reaction to cipro so this was changed to Azithromycin. Pt remains on cefepime. (5) JUNIOR (acute kidney injury): Status: Acute Assessment and plan: Will give gentle rehydration and monitor for improvements. 10.07.24 Pt bun/cr ratio is 41/1.3 Will give a bit more hydration (6) Diastolic heart failure: Assessment and plan: Pt with an elevated bnp at outlying facility. Will check echo Subjective Subjective Interval history since last seen: Pt seen and examined in his room this am. PT states that he feels better. Son and Daughter in law in the room and state that his mentation is somewhat worse than baseline. POC d/w pt, family as well as bedside nurse during MDR Exam Narrative Exam Narrative: Head eyes ears nose and throat: Normocephalic atraumatic mucous membranes moist oropharynx clear extract motions are intact pupils are equal round and reactive to light he does have bilateral senile arcus Neck: No lymphadenopathy no JVD no thyromegaly Cardiovascular: Regular rate and rhythm no murmur rubs or gallops Abdomen: Soft nontender nondistended bowel sounds active Extremities: He does have bilateral venous stasis changes as well as 1-2+ edema in his lower extremities Neurologic: Cranial nerves II through XII intact as tested reflexes in upper lower extremity normal as tested Pulm: Bilateral wheeze but no significant accessory muscle use is able to speak in complete sentences Objective Last Vital Signs Temp 36.6 C 10/07/24 10:38 Pulse 80 10/07/24 10:38 Resp 22 10/07/24 10:38 BP 172/96 H 10/07/24 10:38 Pulse Ox 93 10/07/24 10:38 Laboratory Results - last 24 hr 10/06/24 10/06/24 10/07/24 17:43 18:46 06:08 WBC 4.04 L RBC 3.56 L Hgb 10.8 L Hct 32.7 L MCV 92 MCH 30.3 MCHC 33.0 RDW 15.8 H Plt Count 167 MPV 9.6 Immature Gran % 0.7 Neutrophils % 93.1 Lymphocytes % 5.0 Monocytes % 1.2 Eosinophils % 0.0 Basophils % 0.0 Nucleated RBC % 2.2 H Absolute Neutrophils 3.76 Absolute Lymphocytes 0.20 L Absolute Monocytes 0.05 L Absolute Eosinophils 0.00 Absolute Basophils 0.00 Sodium 139 Potassium 5.6 H Chloride 104 Carbon Dioxide 28.6 Anion Gap 6.4 BUN 41 H Creatinine 1.3 Est GFR (CKD-EPI 2020) 58.37 Glucose 124 H Calcium 9.8 Total Bilirubin 0.34 AST 18 ALT 23 Alkaline Phosphatase 147 H C-Reactive Protein 5.47 H Total Protein 8.1 Albumin 2.8 L Procalcitonin < 0.10 Urine Color Yellow Urine Clarity Clear Urine pH 6.0 Ur Specific [place] 1.025 Urine Protein Trace Urine Ketones Negative Urine Blood Negative Urine Nitrite Negative Urine Bilirubin Negative Urine Urobilinogen 0.2 Ur Leukocyte Esterase Negative Urine RBC Urine WBC Ur Epithelial Cells Urine Crystals Urine Bacteria Urine Casts Urine Mucus Ur Culture Indicated? Urine Glucose Negative COVID-19 Source Cancelled SARS-CoV-2 (PCR) Cancelled Influenza Type A (PCR) Cancelled Influenza Type B (PCR) Cancelled RSV (PCR) Cancelled 10/07/24 11:20 WBC RBC Hgb Hct MCV MCH MCHC RDW Plt Count MPV Immature Gran % Neutrophils % Lymphocytes % Monocytes % Eosinophils % Basophils % Nucleated RBC % Absolute Neutrophils Absolute Lymphocytes Absolute Monocytes Absolute Eosinophils Absolute Basophils Sodium Potassium Chloride Carbon Dioxide Anion Gap BUN Creatinine Est GFR (CKD-EPI 2020) Glucose Calcium Total Bilirubin AST ALT Alkaline Phosphatase C-Reactive Protein Total Protein Albumin Procalcitonin Urine Color Yellow Urine Clarity Clear Urine pH 5.5 Ur Specific [place] 1.025 Urine Protein 100 H Urine Ketones Trace H Urine Blood Trace-intact H Urine Nitrite Negative Urine Bilirubin Negative Urine Urobilinogen 0.2 Ur Leukocyte Esterase Negative Urine RBC 5-10 H Urine WBC 3-5 Ur Epithelial Cells Rare Urine Crystals Negative Urine Bacteria Rare Urine Casts 5-10 Hyaline Urine Mucus Negative Ur Culture Indicated? No Urine Glucose Negative COVID-19 Source SARS-CoV-2 (PCR) Influenza Type A (PCR) Influenza Type B (PCR) RSV (PCR) Time Spent with Patient Time Spent with Patient: 25-34 minutes Time was spent: preparing to see the patient(eg.review tests), obtaining and/or reviewing separately otained hiistory, ordering medications,tests, procedures, referring, communicating with other health memory care program director, indepentently interpreting results, counseling the patient and care coordination
--- NOTE | 2024-10-07 13:54 | W.NUTRFU ---
Date of service: 10/07/24 Time of Service: 09:50 Nutrition Note NOTE: Mr Beltrán sitting up in bed on visit. He is a 74yo male admitted for JUNIOR, hyperkalemia, PNA. Ordered for regular diet with recently good po intake. weight hx shows slight weight gain trend - pt with noticeable significant edema to bilateral lower leg/feet. Denies nausea/vomiting - last BM reported as few days ago. Lytes wnl except high potassium still at 5.6. Total protein lab wnl today, albumin 2.8 (indicative of inflammation as CRP elevated as well) GFR today at 58 Ordered for vitamin D per home med list. Pt reports no special nutrition needs, no food allergies. Initial screening for patient puts him at lower nutrition risk. Will continue to monitor po intake, labs, weight, food preferences. Time Spent in Nutritional Counseling and Treatment: 10 min
--- NOTE | 2024-10-07 15:29 | IN_ITS ---
PT Notes Visit Reasons: COPD Inpatient Physical Therapy Evaluation Date: 10/07/2024 Referring Doctor: Dr Dewey PT Orders: PT CONSULT: PT evaluation and treatment Precautions: Standard, falls, IV access right hand, Newsome catheter, oxygen Patient Profile/Admitting Diagnosis: Patient is 74-year-old male presented to the emergency room with increased shortness of breath weakness patient diagnosed with pneumonia treated with antibiotics patient also noted to have acute kidney injury hyperkalemia and diastolic heart failure. Patient admitted to med surgical unit for further medical management and PT consult. PMHX: JUNIOR (acute kidney injury) (Acute) Pneumonia (Acute) Hyperkalemia (Acute) Renal cyst (Acute) Incomplete emptying of bladder (Acute) Recurrent UTI (Acute) Dyspnea on exertion (Acute) Hypoventilation (Acute) Cerebellar atrophy (Acute) Autonomic orthostatic hypotension (Acute) BPH w urinary obs/LUTS (Acute) Benign paroxysmal vertigo (Acute) Anemia (Chronic) Sensorineural hearing loss, bilateral (Acute) Dizziness (Acute) Memory changes (Acute) Neuropathy, idiopathic (Acute) IBS (irritable bowel syndrome) (Chronic) Frequent falls (Acute) Diplopia (Acute) Localized edema (Acute) Nail dystrophy (Acute) Lumbar stenosis (Acute) Post concussion syndrome (Acute) Aug and December,yncope (Chronic) Cervical myelopathy (Acute) Tremor (Acute) Migraine aura without headache (Acute) Left arm pain (Acute) Babinski reflex (Acute) Medical History Oral cancer Spinal stenosis in cervical region Snoring Neck pain Meniscus, lateral, derangement Amnesia Talipes planovalgus Sustained SVT PTSD (post-traumatic stress disorder) Parkinsonism Obstructive sleep apnea History of neck pain MRSA (methicillin resistant Staphylococcus aureus) Hypomania Hydronephrosis Essential tremor Erectile dysfunction Chronic deep venous thrombosis Cervical spondylosis with myelopathy Cervical radiculopathy Bronchospasm Retrograde amnesia Depression Migraine headache with aura Impaired glucose tolerance Nocturia Achilles tendinitis Degeneration of intervertebral disc of lumbosacral region Microscopic hematuria History of IBS GERD (gastroesophageal reflux disease) Exercise induced bronchospasm Lymphedema Deep vein thrombosis Diastolic heart failure Supraventricular tachycardia Hypertension BPPV (benign paroxysmal positional vertigo) Chronic posttraumatic stress disorder Anxiety Bipolar disorder Anemia of chronic disease Obesity Hyperlipidemia Hypothyroidism Multiple lipomas Malignant tumor of tongue Surgical History H/O cervical spine surgery 05/14/2021 [facility] [place] History of esophagogastroduodenoscopy (EGD) History of excision of pilonidal cyst 1964History of back surgery 1988History of excision of lesion tongue x 2 2012History of orthopedic surgery 07/24/2013S/P total knee arthroplasty Hx of colonoscopy 10/07/19History of tonsillectomy H/O hernia repair Artificial knee joint present R TKA 2014 Social History/Home Situation: Patient resides with his . Patient was ambulatory until the fall 2023 when he transition to performing step turn transfers from bed to wheelchair and wheelchair to recliner. Patient has grab bar across from the side of his bed which he uses to pull to stand and then step turns to sit in the wheelchair. His provides transportation/locomotion within the home and the wheelchair to get to the recliner. Patient utilizes walker for step turn transfer wheelchair to/from recliner. Patient has grab bars in the bathroom. provides ADL care. Equipment Owned/DME: FWW, w/c , cane Subjective: Pt reports he does not walk much anymore because he keeps falling. Objective: General Observation: Obese male upright in bed with oxygen via nasal cannula at 1.5 L/min. IV access noted to right wrist. Mental Status: Alert and oriented to person, confusion and parroting speech note d intermittently Pain: Denied Vital Signs: Monitored via telemetry throughout ROM: Right Upper Extremity: WFL AA ROM limited AROM d/t cervical radiculaopathy Left Upper Extremity: Within functional limits active assistive range of motion all joints AROM d/t cervical radiculaopathy Right Lower Extremity:WFL except Hip IR lacking 5 degrees however limited by lymphedema throughout Left Lower Extremity: WFL limited by lympedema Strength: Patient noted with essential tremors bilateral upper extremities Right Upper Extremity: grossly shoulder 3-/5, elbow 3/5, hand 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 - Left Upper Extremity: grossly shoulder 3-/5, elbow 3/5, hand Fair aircraft engine 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 mechanic Right Lower Extremity: Hip flexion: 2-/5; hip abduction: 2- /5; hip extension: 2 /5; knee extension: 3- /5; knee flexion: 2 /5 ankle DF: 3- /5 ; ankle PF: 3 /5 Left Lower Extremity: Hip flexion: 2- /5; hip abduction: 2- /5; hip extension: 2/5; knee extension: 3-/5; knee flexion: 2/5 ankle DF: 3- /5 ; ankle PF: 3 /5 Sensation: Appears intact to bilateral lower extremity and upper extremity Bed Mobility/Transfers: [] Supine to sit with head of bed elevated to 50 degrees max assist of 1 Sit to supine with head of bed at 30 degrees max assist of 1 min assist of 1 Transfers: Bed to chair via mechanical lift to assist at this time Sit to stand unable at this time Gait: Unable to assess Balance: [] Static Sitting: Fair Dynamic Sitting: Fair minus Static Standing: Unable to assess Dynamic Standing: Unable to assess Special Tests: Mobility Limitations Standardized Measure [facility] 6 clicks Basic Mobility Inpatient Short Form: Raw Score: 8 CMS Score: 86.62% Informed Consent/Education: Patient instructed in purpose of PT consult and plan of care. Assessment: Patient is a 74year old male referred to physical therapy services with the diagnosis of pneumonia. Patient presents with clinical signs and symptoms consistent with admitting diagnosis, as demonstrated by the following impairment level findings: 1. Impaired strength/motor control bilateral upper extremity and lower extremity major muscle groups 2. Impaired sitting and standing balance 3. Decline in functional activity tolerance 4. Impaired breath control and pacing techniques Impairments are contributing to the following functional limitations: 1. AMPAC score. 2. Decline in bed mobility skills 3. Declining transfer skills 4. Inability to ambulate without assistance 5. Increased time to complete ADL/mobility tasks 6. Increased risk for falls Patient is assessed as a Moderate 63711 complexity based on the following: History: 74-year-old male presenting with significant/complex past medical history as stated above Examination: Demonstrates impairment in strength, motor control, balance and mobility level with underlying impairments and functional limitations as exhibited above as well as a deficit score of 86.62% utilizing the [facility] mobility inpatient Short form Presentation: Evolving Decision Making: Moderate Goals: Goals X1 week 1. Supine-Sit min assist of 1 2. Sit-Supine mod assist of 1 for lower extremities 3. Sit-Stand mod assist of 1 4. Stand-Sit [mod assist of 1 5. Bed-Chair mod assist of 1 step turn with FWW 6. Chair-Bed mod assist of 1 step turn with FWW Plan of Care/Treatment Plan: 1-2x/day, 7 days/week x 1 week. Plan of care has been reviewed with the IN SERVICE EDUCATOR providing the service under Physical Therapy direction. Initiate Physical Therapy intervention for strengthening, bed mobility, transfers, gait, stairs, balance training, use of assistive device. DISCHARGE RECOMMENDATIONS: [] [] Home with no services [] [] Home with services [specify] [] Home with outpatient PT [] X SNF for continued rehabilitation vs HH PT [] [facility] [] [] SNF versus LTC based on ability to participate and progress [] TREATMENT CODE/TIME: 55208, [id number]
[2024-10-07] MEDS: Enoxaparin 40 MG/0.4 ML SYR SC (17:08)
[2024-10-07 22:48] LABS: Legionella Ag Detection Urine Negative (Negative)
[2024-10-08] VITALS (8 sets, daily range): BP systolic 160–182; BP diastolic 79–99; PULSE 69–75; RESP 16–19; TEMP 35.9–36.1; O2SAT 92–96
[2024-10-08] MEDS: methylPREDNISolone SUCC 40 MG VIAL IVP ×2 (04:06→15:52)
[2024-10-08] MEDS: Normal Saline Flush 10 ML SYR IVP ×4 (04:06→21:24)
[2024-10-08] MEDS: Levothyroxine 150 MCG TAB PO (05:27)
[2024-10-08] MEDS: Enoxaparin 40 MG/0.4 ML SYR SC ×2 (05:27→17:30)
[2024-10-08] MEDS: Sodium Zirconium Cyclosilicate 10 GM PKT PO ×2 (05:33→14:11)
[2024-10-08 07:06] LABS: Abs Immature Grans 0.04 10^3/uL (0.0-0.06); Absolute Basophil Count 0.01 10^3/uL (0.0-0.2); Absolute Lymphocyte Count 0.44 10^3/uL (1.2-3.4); Absolute Monocyte Count 0.21 10^3/uL (0.1-0.8); Absolute Neutrophil Count 8.76 10^3/uL (1.2-6.7); Basophils % 0.1 %; HCT 31.8 % (40.0-50.0); HGB 10.3 g/dL (13.5-17.5); Immature Grans % 0.4 %; Lymphocytes % 4.7 %; MCHC 32.4 % (32.0-36.0); MCV 93 fL (80-95); MPV 9.8 fL (8.0-11.0); Monocytes % 2.2 %; Neutrophils % 92.6 %; Nucleated RBC 2.1 % (0.0-0.3); Platelet Count 171 10^3/uL (130-400); RBC 3.43 10^6/uL (4.36-5.78); RDW-SD 54.5 fL; WBC 9.46 10^3/uL (4.4-10.8)
[2024-10-08 07:20] LABS: ALT 24 U/L (16-63); AST 18 U/L (15-37); Albumin 2.6 g/dL (3.4-5.0); Alkaline Phosphatase 141 U/L (46-116); Anion Gap 3.9 mmol/L (3-11); BUN 46 mg/dL (7-18); Bilirubin, Total 0.29 mg/dL (0.2-1.0); C-Reactive Protein 3.51 mg/dL (<or=0.5); CO2 31.1 mmol/L (21.0-32.0); CREATININE 1.4 mg/dL (0.70-1.30); Calcium 9.7 mg/dL (8.5-10.1); Chloride 107 mmol/L (98-107); Glucose 106 mg/dL (74-106); Potassium 5.1 mmol/L (3.5-5.1); Sodium 142 mmol/L (136-145); Total Protein 7.6 g/dL (6.4-8.2)
[2024-10-08] MEDS: Umeclidinium 7 CAP INHALER IH (08:19)
[2024-10-08] MEDS: Cholecalciferol (Vitamin D3) 1,000 UNIT TAB 1000 UNITS PO (09:19)
[2024-10-08] MEDS: Azithromycin 250 MG TAB PO (09:20)
[2024-10-08] MEDS: Divalproex Sodium 500 MG TAB.ER.24H 1500 MG PO (09:20)
[2024-10-08] MEDS: Cyanocobalamin 500 MCG TAB 1000 MCG PO (09:20)
[2024-10-08] MEDS: lamoTRIgine 100 MG TAB 250 MG PO (09:21)
[2024-10-08] MEDS: Losartan 25 MG TAB PO (09:22)
[2024-10-08] MEDS: Tamsulosin 0.4 MG CAPCR PO (09:22)
[2024-10-08] MEDS: Metoprolol CR 100 MG TABCR PO (09:22)
[2024-10-08] MEDS: CEFEPIME 2 GM in Normal Saline 100 ML IVPB ×3 (09:23→23:58)
--- NOTE | 2024-10-08 09:30 | DI.US_ITS ---
APPROVED REPORT EXAM: Comprehensive 2D, Doppler, and color-flow Echocardiogram Patient Location: In-Patient Room/Bed: 209 Form Maker Plaster: Markell Gonzalez RDCS (AE) Indications: CHF Other Information Study Quality: Technically Limited. Technically limited study due to body habitus, inability to posit ion patient, poor subcostal imaging. Conclusion Technically difficult and suboptimal study Normal left ventricular wall thickness and chamber size. Ejection fraction is 45 to 50%. There are no segmental wall motion abnormalities Normal right ventricular size and function. Normal right atrial size Mildly dilated left atrium Aortic valve is not well-visualized Trivial mitral regurgitation Wall motion Left Ventricle The left ventricle is normal size. Left ventricular systolic function is mildly decreased. There is n ormal left ventricular wall thickness. There is global hypokinesis of the left ventricle. There is no ventricular septal defect visualized. LVEF is 45-50%. Right Ventricle The right ventricle is normal size. The right ventricular systolic function is normal. Atria Left atrium is mildly dilated. The right atrium size is normal. The interatrial septum is intact with no evidence for an atrial septal defect. Aortic Valve The aortic valve is not well visualized. No aortic regurgitation is present. Mitral Valve Mild mitral annular calcification. Trivial mitral regurgitation Tricuspid Valve The tricuspid valve is normal in structure. There is no tricuspid valve regurgitation noted. Pulmonic Valve Pulmonic valve is not well visualized. There is no pulmonic valvular regurgitation. Great Vessels The aortic root is normal in size. Ascending aorta is not well visualized. Aortic arch is not well vi sualized. IVC is normal in size and collapses >50% with inspiration. 2D Dimensions IVSD d PLAX 1.03 cm M: 0.6-1.2 Ao Root d 2.51 cm M: 3.1 - 3.7 LVPW d PLAX 1.05 cm M: 0.6 - 1.2 LVID d PLAX 5.13 cm M: 4.2 - 5.8 LVDs 3.97 cm M: 2.5 - 4.0 LV EF Teichholz 45.3 % FS 22.65 % LV EDV (Teich) 125.7 mL LV ESV (Teich) 68.8 mL Stroke Vol Index (Teich) 22.85 Auto EF LV EDV A4C 114.8 mL LV EDV A2C 189.3 mL LV EDV BP 148.8 mL LV ESV A4C 63.6 mL LV ESV A2C 107.0 mL LV ESV BP 82.7 mL LVEF(%) A4C 44.6 % LVEF(%) A2C 43.5 % LVEF(%) BP 44.4 % LV SV A4C 51.2 ml LV SV A2C 82.3 ml LV SV BP 66.1 ml LV CO A4C 3.9 L/min LV CO A2C 6.5 L/min LV CO BP 5.2 L/min HR A4C 76.28 BPM HR A2C 78.95 BPM LV EDV Index (BP) LA Volume LA Length A4C 5.4 cm LA Length A2C 5.5 cm LA Area A4C s 25.16 cm2 LA Area A2C s 24.10 cm2 LA Vol A4C A-L 99.83 mL LA Vol A2C A-L 89.27 mL LA Vol Biplane A-L 95.6 mL LA Vol/BSA A4C A-L LA Vol/BSA A2C A-L LA Vol/BSA BP A-L 38.4 mL/m2 LA Vol A4C MOD 95.9 mL LA Vol A2C MOD 76.8 mL LA Vol BP MOD 86.3 mL RA Volume RA Area A4C 19.4 cm2 RA ESV A4C (A-L) 62.1mL RA Vol/BSA A4C A-L RA Length A4C 5.2 cm RA ESV A4C (MOD) 60.1mL LV Diastology MV E' medial 0.211 (>0.07 m/s) MV E' lateral 0.185 (>0.1 m/s) Aortic Valve AoV Vmax 1.84 m/s LVOT Vmax 1.17 m/s AoV Peak Grad 13.5 mmHg LVOT Peak Grad 5.5 mmHg AoV Area (Vmax) 1.33 cm2 LVOT VTI 0.279 m AoV VTI 0.457 m LVOT Mean Grad 3.1 mmHg AoV Mean Jordon. 1.19 m/s LVOT SV 58.02 mL AoV Mean Grad 6.9 mmHg LVOT Diam s 1.60 cm AoV Area (VTI) 1.27 cm2 AV Regurg Peak Gr. 13.51 mmHg Velocity Ratio 0.64 Mitral Valve MV Vmax TIPS 1.60 m/s MV Mean Grad 3.7 (<2mmHg) MV VTI 0.308 m
--- NOTE | 2024-10-08 10:10 | PDOC.CMPRO ---
Date of service: 10/08/24 Time of Service: 10:10 Care Management Progress Note Progress Note Text Progress Note Text: Yousuf was sitting up in bed visiting with his Fabi when CM met with him. Yousuf is still confused and his reported that he was laughing earlier and she believes he may have been hallucinating again. Fabi confirmed that this is not Yousuf's baseline. 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 She did say that he does have some short term memory loss but has been told he does not have dementia. At baseline Yousuf does not use oxygen. Fabi stated that last Monday was the first time he has needed a nebulizer. Yousuf and Fabi live in a single family home in [place]. They have 3 children who are adults and live independently. Yousuf has been declining and now spends most of his time in a wheelchair. He is able to stand and pivot to transfer in and out of bed and his chair. He does not receive any services at home and Fabi is able to provide assistance with his care. Discharge Potential Discharge Needs: PCP F/U Appt Anticipated Barriers to Discharge: None Identified Patient/Family Education Needs: Review discharge instructions, discuss Ask Me Three Transportation: Private vehicle Plan: Anticipate Toy will be discharged home, possibly with new home health services, when medically cleared. Physical Therapy is recommending SNF vs home health PT. CM inquired if they would be open to services. Fabi responded that she really did not want him to go to a SNF; she would be open to home health PT. Yousuf will follow up with his community providers and plan of care and transport with family. CM will follow and continue to assess for discharge needs. Social Determinants of Health Screening Social Determinants of Health last assessed: 10/08/24 Will the Patient Participate in the Screening?: Yes Do you worry about having a steady place to live?: no Problems where you live: no known problems In the past 12 months, have you had to go without electric, gas, oil or water in your home?: no Have you or anyone in your house had to go without enough food to eat?: no Has lack of transportation kept you from medical appointments or from doing things needed for daily living?: no Has anyone in your life made you feel unsafe or unsupported?: no How hard is it for you to pay for the very basics like food, housing, medical care, and heating? Would you say it is:: Not hard at all Do you want help finding or keeping work or a job?: I do not need or want help If for any reason you need help with day-to-day activities such as bathing, preparing meals, shopping, managing finances, etc., do you get the help you need?: I don?t need any help How often do you feel lonely or isolated from those around you?: Often Do you speak a language other than Irish at home?: No Does the patient want assistance with any of the above?: No Health Related Social Needs Health related social needs: feeling lonely/isolated (Z60.8)
--- NOTE | 2024-10-08 11:55 | PTTR_ITS ---
PT Notes Visit Reasons: COPD Inpatient Physical Therapy Treatment Note [facility] Date: 10/08/2024 PRECAUTIONS:IV access BUE, continuous oxygen , barron , telemetry, fall risk, Standard precautions SUBJECTIVE:Pt reports he is feeling better. Pt's again reports he does not walk at home and pulls to stand at grab bars next to bed then side steps to end of bed to sit in the wheelchair .She utilizes a gait belt for all transfers. SHe then pushes him to his recliner where he pulls to stand and then pivots with FWW . She states he stopped walking in the fall of 2023 after multiple falls. She provides assistance for his self care. OBJECTIVE: pt semireclined in bed with oxygen at 1.5L/min via NC telemetry in place , beatrice to bedside drainage. visiting. ? PAIN: pt expressed pain in left heel when donning socks VITALS: ?monitored via telemetry throughout Therapeutic Activities (48673): Direct one-on-one instruction in dynamic activities to improve functional performance. ?? Provided skilled cues and instruction on performance and technique throughout. ? BED MOBILITY/TRANSFERS? Rolling L/R: Max A of 2 with rails Supine-sit: with HOB at 50 degrees mod A of 1 with increased time and a rest period after legs over edge of bed? Sit-supine: [] ? Sit-stand: Mod A of 2 with BUE pulling on FWW? Stand-sit: Mod A of 2 with BUE on FWW? Bed-Chair:Steadylift 2 assist? pt able to pull to stand (as he pulls to stand at home)? Chair-bed: stead lift 2 assist pt able to pull to stand ( as he pulls to stand at home) ASSESSMENT: Patient with improved activity tolerance this session as compared to initial evaluation. Patient able to participate in sit to stand however unable to perform steps or pivot therefore steady lift utilized. Patient able to pull to stand on steady left and sustained weightbearing through bilateral lower extremities throughout transfer. Patient's involved in session and provided encouragement throughout. PLAN: 1-2x/day, 7 days/week x 1 week. Plan of care has been reviewed with the LEVEL VIAL INSPECTOR providing the service under Physical Therapy direction. Initiate Physical Therapy intervention for strengthening, bed mobility, transfers, gait, stairs, balance training, use of assistive device. TREATMENT CODE/TIME: 38049/ [id number] (PM SESSION) pt not available DISCHARGE RECOMMENDATION: SNF vs HHPT
--- NOTE | 2024-10-08 16:32 | W.PM.PROGNOT ---
Date of Service Date of service: 10/08/24 Time of Service: 16:32 Subjective Subjective Interval history since last seen: Pt seen and examined in his room this am. Pt does appear to be more delirious. Objective Last Vital Signs Temp 36 C L 10/08/24 14:52 Pulse 71 10/08/24 14:52 Resp 17 10/08/24 14:52 BP 160/79 H 10/08/24 14:52 Pulse Ox 94 10/08/24 14:52 Laboratory Results - last 24 hr 10/06/24 10/08/24 18:46 06:30 WBC 9.46 RBC 3.43 L Hgb 10.3 L Hct 31.8 L MCV 93 MCH 30.0 MCHC 32.4 RDW 16.0 H Plt Count 171 MPV 9.8 Immature Gran % 0.4 Neutrophils % 92.6 Lymphocytes % 4.7 Monocytes % 2.2 Eosinophils % 0.0 Basophils % 0.1 Nucleated RBC % 2.1 H Absolute Neutrophils 8.76 H Absolute Lymphocytes 0.44 L Absolute Monocytes 0.21 Absolute Eosinophils 0.00 Absolute Basophils 0.01 Sodium 142 Potassium 5.1 Chloride 107 Carbon Dioxide 31.1 Anion Gap 3.9 BUN 46 H Creatinine 1.4 H Est GFR (CKD-EPI 2020) 53.40 Glucose 106 Calcium 9.7 Total Bilirubin 0.29 AST 18 ALT 24 Alkaline Phosphatase 141 H C-Reactive Protein 3.51 H Total Protein 7.6 Albumin 2.6 L Urine Legionella Ag Negative
--- NOTE | 2024-10-08 16:51 | W.PM.PROGNOT ---
Date of Service Date of service: 10/08/24 Time of Service: 16:51 Assessment and Plan Assessment and plan (1) Incomplete emptying of bladder: Status: Acute Assessment and plan: In reviewing his chart it was noted that he has had multiple UTIs and was seen by urology telehealth. I will repeat a urinalysis with a reflex culture. 10/07/24 UA was reassuring 10/08/[address] with light colored urine (2) Hypertension: Assessment and plan: Awaiting an updated home med list. His vital signs at the other institution were a blood pressure of 150/73. 10/07/24 Pt still with some htn 10/08/24 BP is currently 160/79 and is on losartan and metoprolol long acting. Pt also has hydralazine prn (3) Hyperkalemia: Status: Acute Assessment and plan: Started on Lokelma will recheck in the a.m. I do not see a copy of his EKG but he will be put on telemetry 10/08/24 Hypokalemia resolved (4) Pneumonia: Status: Acute Assessment and plan: Patient appears to have failed outpatient therapy which was Augmentin and doxycycline. While he was in the other ED he was given Rocephin and doxycycline. In reviewing up to date recommendation is to broaden coverage to cefepime and ciprofloxacin so this we done also order Legionella and mycoplasma pneumonia screenings. I do not see a viral screen for flu and COVID either so I am sure this was done but is not in the chart but we need to repeated. There is also recommendation for follow-up CT if failed outpatient therapy. This has been ordered. Have also ordered a sputum and blood cultures. 10/07/24 Per overnight coverage, pt had a reaction to cipro so this was changed to Azithromycin. Pt remains on cefepime. (5) JUNIOR (acute kidney injury): Status: Acute Assessment and plan: Will give gentle rehydration and monitor for improvements. 10.07.24 Pt bun/cr ratio is 41/1.3 Will give a bit more hydration 10/08/24 Still with an elevated bun/cr ratio. Will hemcheck stool as well (6) Diastolic heart failure: Assessment and plan: Pt with an elevated bnp at outlying facility. Will check echo Subjective Subjective Interval history since last seen: Pt seen and examined in his room. POC d/w pt as well as his who was in the room. POC also d/w bedside nurse during MDR. Pt with a bit more confusion this am Exam Narrative Exam Narrative: Head eyes ears nose and throat: Normocephalic atraumatic mucous membranes moist oropharynx clear extract motions are intact pupils are equal round and reactive to light he does have bilateral senile arcus Neck: No lymphadenopathy no JVD no thyromegaly Cardiovascular: Regular rate and rhythm no murmur rubs or gallops Abdomen: Soft nontender nondistended bowel sounds active Extremities: He does have bilateral venous stasis changes as well as 1-2+ edema in his lower extremities Neurologic: Cranial nerves II through XII intact as tested reflexes in upper lower extremity normal as tested Pulm: Bilateral wheeze but no significant accessory muscle use is able to speak in complete sentences barron in place Objective Last Vital Signs Temp 36 C L 10/08/24 14:52 Pulse 71 10/08/24 14:52 Resp 17 10/08/24 14:52 BP 160/79 H 10/08/24 14:52 Pulse Ox 94 10/08/24 14:52 Laboratory Results - last 24 hr 10/06/24 10/08/24 18:46 06:30 WBC 9.46 RBC 3.43 L Hgb 10.3 L Hct 31.8 L MCV 93 MCH 30.0 MCHC 32.4 RDW 16.0 H Plt Count 171 MPV 9.8 Immature Gran % 0.4 Neutrophils % 92.6 Lymphocytes % 4.7 Monocytes % 2.2 Eosinophils % 0.0 Basophils % 0.1 Nucleated RBC % 2.1 H Absolute Neutrophils 8.76 H Absolute Lymphocytes 0.44 L Absolute Monocytes 0.21 Absolute Eosinophils 0.00 Absolute Basophils 0.01 Sodium 142 Potassium 5.1 Chloride 107 Carbon Dioxide 31.1 Anion Gap 3.9 BUN 46 H Creatinine 1.4 H Est GFR (CKD-EPI 2020) 53.40 Glucose 106 Calcium 9.7 Total Bilirubin 0.29 AST 18 ALT 24 Alkaline Phosphatase 141 H C-Reactive Protein 3.51 H Total Protein 7.6 Albumin 2.6 L Urine Legionella Ag Negative Time Spent with Patient Time Spent with Patient: 25-34 minutes Time was spent: preparing to see the patient(eg.review tests), obtaining and/or reviewing separately otained hiistory, ordering medications,tests, procedures, referring, communicating with other health hospice home care coordinator, indepentently interpreting results, counseling the patient and care coordination
[2024-10-08] MEDS: hydrALAZINE 20 MG/ML VIAL 10 MG IVP (21:22)
[2024-10-09] VITALS (12 sets, daily range): BP systolic 152–191; BP diastolic 67–121; PULSE 18–80; RESP 8–24; TEMP 36–37.1; O2SAT 92–99
[2024-10-09] MEDS: Albuterol/Ipratropium 3 ML UPD VIAL UPD ×2 (02:07→08:15)
[2024-10-09 02:43] LABS: BE (Venous) 6 mmol/L (-2-3); HCO3 (Venous) 30 mmol/L (23-28); O2 Sat (Venous) 97 %; TCO2 (Venous) 28 mmol/L (24-29); pCO2 (Venous) 45 mmHg (41-51); pH (Venous) 7.43 (7.31-7.41); pO2 (Venous) 79 mmHg
[2024-10-09 03:01] LABS: Ammonia < 10 umol/L (11-32)
[2024-10-09] MEDS: methylPREDNISolone SUCC 40 MG VIAL IVP (03:31)
[2024-10-09] MEDS: Normal Saline Flush 10 ML SYR IVP (03:32)
[2024-10-09] MEDS: Enoxaparin 40 MG/0.4 ML SYR SC ×2 (05:28→18:38)
[2024-10-09 06:52] LABS: Abs Immature Grans 0.04 10^3/uL (0.0-0.06); Absolute Basophil Count 0.01 10^3/uL (0.0-0.2); Absolute Lymphocyte Count 0.51 10^3/uL (1.2-3.4); Absolute Monocyte Count 0.25 10^3/uL (0.1-0.8); Absolute Neutrophil Count 7.49 10^3/uL (1.2-6.7); Basophils % 0.1 %; HCT 32.4 % (40.0-50.0); HGB 10.7 g/dL (13.5-17.5); Immature Grans % 0.5 %; Lymphocytes % 6.1 %; MCH 30.1 pg (27.0-33.0); MCV 91 fL (80-95); MPV 9.6 fL (8.0-11.0); Neutrophils % 90.3 %; Platelet Count 186 10^3/uL (130-400); RBC 3.55 10^6/uL (4.36-5.78); RDW 15.9 % (11.8-14.1); RDW-SD 53.4 fL
[2024-10-09 07:25] LABS: ALT 26 U/L (16-63); AST 20 U/L (15-37); Albumin 2.7 g/dL (3.4-5.0); Alkaline Phosphatase 136 U/L (46-116); Anion Gap 7.2 mmol/L (3-11); BUN 53 mg/dL (7-18); Bilirubin, Total 0.32 mg/dL (0.2-1.0); CO2 29.8 mmol/L (21.0-32.0); CREATININE 1.4 mg/dL (0.70-1.30); Calcium 9.9 mg/dL (8.5-10.1); Chloride 108 mmol/L (98-107); Glucose 108 mg/dL (74-106); Potassium 4.8 mmol/L (3.5-5.1); Sodium 145 mmol/L (136-145); Total Protein 7.9 g/dL (6.4-8.2)
[2024-10-09] MEDS: Levothyroxine 150 MCG TAB PO (08:02)
[2024-10-09] MEDS: Umeclidinium 7 CAP INHALER IH (08:15)
[2024-10-09] MEDS: lamoTRIgine 100 MG TAB 250 MG PO (09:00)
[2024-10-09] MEDS: Divalproex Sodium 500 MG TAB.ER.24H 1500 MG PO (09:01)
[2024-10-09] MEDS: Cyanocobalamin 500 MCG TAB 1000 MCG PO (09:01)
[2024-10-09] MEDS: predniSONE 20 MG TAB 30 MG PO (09:01)
[2024-10-09] MEDS: Metoprolol CR 100 MG TABCR PO (09:02)
[2024-10-09] MEDS: Tamsulosin 0.4 MG CAPCR PO (09:03)
[2024-10-09] MEDS: Losartan 25 MG TAB PO (09:07)
[2024-10-09] MEDS: Cholecalciferol (Vitamin D3) 1,000 UNIT TAB 1000 UNITS PO (09:08)
[2024-10-09] MEDS: Azithromycin 250 MG TAB PO (09:08)
--- NOTE | 2024-10-09 10:01 | CMPROGNOTE_ITS ---
Date of service: 10/09/24 Time of Service: 10:01 Care Management Progress Note Progress Note Text Progress Note Text: Yousuf was sitting up in a chair visiting with his Fabi when CM met with him. He remains confused and has difficulty keeping his nasal cannula in place. Yousuf's oxygen saturation has been in the 90s (92-96) on 2 L/min of nasal O2. He was taken off oxygen briefly and he still maintained his oxygen saturation at 93%. His expressed concern that his oxygenation levels weren't higher. CM commented that with patients with COPD, the goal is generally 88-92 %. She responded that she doesn't feel he really has COPD and because of the pneumonia, feels his oxygenation should be higher. Fabi also expressed concern about Yousuf's constipation and oral intake. He needs to be fed at this time. She stated that normally he has a good appetite but with this illness he has not had much interest in food. Yousuf had a small BM last evening (smear), but otherwise no stool since at least Monday, perhaps earlier. CM discussed her concerns with Yousuf's nurse. She had already planned to address Yousuf's constipation and had attempted to feed him herself this morning. She indicated that she would discuss these concerns with Fabi when she returns to do his next assessment.. Discharge Potential Discharge Needs: PCP F/U Appt Anticipated Barriers to Discharge: None Identified Patient/Family Education Needs: Review discharge instructions, discuss Ask Me Three Transportation: Private vehicle Plan: Anticipate Toy will be discharged home, possibly with new home health services, when medically cleared. Physical Therapy is recommending SNF vs home health PT. Yousuf will follow up with his community providers and plan of care and transport with family. CM will follow and continue to assess for discharge needs. Social Determinants of Health Screening Social Determinants of Health last assessed: 10/09/24 Will the Patient Participate in the Screening?: Yes Do you worry about having a steady place to live?: no Problems where you live: no known problems In the past 12 months, have you had to go without electric, gas, oil or water in your home?: no Have you or anyone in your house had to go without enough food to eat?: no Has lack of transportation kept you from medical appointments or from doing things needed for daily living?: no Has anyone in your life made you feel unsafe or unsupported?: no How hard is it for you to pay for the very basics like food, housing, medical care, and heating? Would you say it is:: Not hard at all Do you want help finding or keeping work or a job?: I do not need or want help If for any reason you need help with day-to-day activities such as bathing, preparing meals, shopping, managing finances, etc., do you get the help you need?: I don?t need any help How often do you feel lonely or isolated from those around you?: Often Do you speak a language other than Macedonian at home?: No Does the patient want assistance with any of the above?: No Health Related Social Needs Health related social needs: feeling lonely/isolated (Z60.8)
--- NOTE | 2024-10-09 13:26 | W.PM.PROGNOT ---
Date of Service Date of service: 10/09/24 Time of Service: 13:26 Assessment and Plan Assessment and plan (1) Pneumonia: Status: Acute Assessment and plan: -Patient appears to have failed outpatient therapy which was Augmentin and doxycycline. -While he was in the other ED he was given Rocephin and doxycycline. -Was started on cefepime and ciprofloxacin but patient had reaction to Cipro was changed to azithromycin -Patient now on p.o. azithromycin and cefpodoxime (2) Acute respiratory failure with hypoxia: Status: Acute Assessment and plan: - Secondary to pneumonia as noted above -Currently on 1 L nasal cannula, wean as tolerated (3) Delirium: Status: Acute Assessment and plan: - Likely due to combination of hospital induced delirium as well as some steroid-induced psychosis as patient was on IV methylprednisolone for 72 hours -No metabolic causes can be found as BMP is within normal limits, ammonia level negative, VBG without hypercapnia -IV steroids have been discontinued and transition to p.o. prednisone 40 mg daily starting tomorrow 10/10/2024 -Continue to orient patient and work on sleep hygiene (4) Hypertension: Assessment and plan: -BP improved on home losartan and metoprolol long acting (5) Hyperkalemia: Status: Acute Assessment and plan: -K was up to 5.6, improved s/p Lokelma -K now WNL (6) JUNIOR (acute kidney injury): Status: Acute Assessment and plan: -Cr up to 1.4, unknown baseline -f/u AM BMP (7) Incomplete emptying of bladder: Status: Acute Assessment and plan: -Newsome is in place with light colored urine (8) Diastolic heart failure: Assessment and plan: -Pt with an elevated bnp at outlying facility -TTE LVEF 45-50% with global hypokinesis (9) Tremor: Status: Acute Assessment and plan: - Patient has a history of documented tremor but does not have Parkinson's as per neurologist Dr. 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 Discussed with patient's , she understands he likely has a combination of steroid-induced psychosis and delirium for which we will continue to orient him during the day, as well as changes IV steroids to p.o. prednisone beginning tomorrow morning 10/10/2024. Exam Narrative Exam Narrative: Fatigued, she confused older gentleman sitting up in the chair in no acute distress, awakens to verbal stimuli, is able to answer yes or no to basic questions and is oriented to person only (baseline is ANO x 4 with some short-term memory loss), heart regular rhythm, lungs clear to auscultation bilaterally, abdomen soft, nontender, nondistended Objective Last Vital Signs Temp 98.8 F 10/09/24 10:56 Pulse 67 10/09/24 10:56 Resp 20 10/09/24 10:56 BP 186/67 H 10/09/24 10:56 Pulse Ox 92 10/09/24 10:56 Laboratory Results - last 24 hr 10/09/24 10/09/24 02:40 06:37 WBC 8.30 RBC 3.55 L Hgb 10.7 L Hct 32.4 L MCV 91 MCH 30.1 MCHC 33.0 RDW 15.9 H Plt Count 186 MPV 9.6 Immature Gran % 0.5 Neutrophils % 90.3 Lymphocytes % 6.1 Monocytes % 3.0 Eosinophils % 0.0 Basophils % 0.1 Nucleated RBC % 2.0 H Absolute Neutrophils 7.49 H Absolute Lymphocytes 0.51 L Absolute Monocytes 0.25 Absolute Eosinophils 0.00 Absolute Basophils 0.01 VBG pH 7.43 H VBG pCO2 45 VBG pO2 79 VBG HCO3 30 H VBG Total CO2 28 VBG O2 Saturation 97 VBG Base Excess 6 H Sodium 145 Potassium 4.8 Chloride 108 H Carbon Dioxide 29.8 Anion Gap 7.2 BUN 53 H Creatinine 1.4 H Est GFR (CKD-EPI 2020) 53.40 Glucose 108 H Calcium 9.9 Total Bilirubin 0.32 AST 20 ALT 26 Alkaline Phosphatase 136 H Ammonia < 10 L Total Protein 7.9 Albumin 2.7 L Time Spent with Patient Time Spent with Patient: >50 minutes Time was spent: preparing to see the patient(eg.review tests), obtaining and/or reviewing separately otained hiistory, ordering medications,tests, procedures, referring, communicating with other health primary care provider, indepentently interpreting results, counseling the patient and care coordination
--- NOTE | 2024-10-09 14:29 | PTTR_ITS ---
PT Notes Visit Reasons: COPD Inpatient Physical Therapy Treatment Note [facility] Date: 10/09/2024 PRECAUTIONS:IV access BUE, oxygen currently at 1L/min order to titrate , barron , telemetry, fall risk, Standard precautions SUBJECTIVE:Pt reports he is okay. OBJECTIVE: pt semireclined in bed with oxygen at 1L/min via NC telemetry in place , barron to bedside drainage. visiting. Pt noted to be more confused havin difficulty following instructions for mobility. Pt requiring hand over hand cues as well as verbal instruction. Pt also frequently closing eyes during mobility. ? PAIN: pt restless but unable to state if in pain, pt with some vocalizations of moaning while seated unable to state why. VITALS: ?monitored via telemetry throughout Therapeutic Activities (84556): Direct one-on-one instruction in dynamic activities to improve functional performance. ?? Provided skilled cues and instruction on performance and technique throughout. ? BED MOBILITY/TRANSFERS? Rolling L/R: Max A of 2 with rails Supine-sit: with HOB at 50 degrees mod A of 2 with increased time and a rest period after legs over edge of bed? (pm session)Sit-supine: dependent A of 2 ? (am session)Sit-stand: Min A of 2 with BUE pulling on FWW?x 3 trials ? (am session)Stand-sit: Min A of 2 with BUE on FWW?x 3 trials ? (am)Bed-Chair:Steadylift 2 assist? Pt required mod A of 2 to pull to stand at Steady lift (pm) Chair-bed: stead lift 2 assist min A to pull to stand from low chair. ASSESSMENT: pt tolerated am session with noted increased confusion and increased need for cues for hand placement with steady lift. pt able to stand x 3 at walker and unweight one foot at a time during one trial however not able to perform step turn transfer at this time. Pt able to sustain weightbearing through B LE on steady lift for 45 sec in am with support of steadylift pads at buttocks. During pm session pt able to sustain standing on lift without support on buttocks for 1 min. then lower self to bed. Pt with episode of anxiousness/ fear after sitting on side of bed. He was assisted to supine position dependent of 2 then fell asleep. At this time uncertain of his 's ability to care for him as he is not able to perform step turn transfers requiring use of steady lift at this time for pt and staff safety. PLAN: 1-2x/day, 7 days/week x 1 week. Plan of care has been reviewed with the MILL HOUSE SUPERVISOR providing the service under Physical Therapy direction. Initiate Physical Therapy intervention for strengthening, bed mobility, transfers, gait, stairs, balance training, use of assistive device. TREATMENT CODE/TIME: 40435/ [id number] (PM SESSION)[id number] DISCHARGE RECOMMENDATION: SNF vs HHPT
[2024-10-09] MEDS: Docusate Sodium 100 MG CAP PO (15:56)
[2024-10-09] MEDS: Milk of Magnesia 30 ML CUP PO (15:56)
--- NOTE | 2024-10-09 16:40 | NUR.NOTE ---
Nursing Note: Pt in distress as he needs to move his bowels, wants to go on the commode. Attempted to place on bariatric commode with 4 people, unsafe, so placed bed munoz on bed for him to sit on and lean on the sit to editor managing director a locked position.
[2024-10-09] MEDS: Acetaminophen 325 MG TAB PO (20:41)
[2024-10-09] MEDS: Cefpodoxime 200 MG TAB PO (20:41)
[2024-10-09] MEDS: hydrALAZINE 20 MG/ML VIAL 10 MG IVP (20:48)
[2024-10-09] MEDS: Haloperidol 5 MG/ML VIAL 4 MG IM (23:48)
[2024-10-10] VITALS (9 sets, daily range): BP systolic 113–193; BP diastolic 52–121; PULSE 64–84; RESP 18–20; TEMP 36–36.6; O2SAT 90–96
[2024-10-10] MEDS: LORazepam 2 MG/ML VIAL IM (00:53)
[2024-10-10] MEDS: diphenhydrAMINE 50 MG/ML VIAL IM (01:25)
--- NOTE | 2024-10-10 07:29 | NUR.NOTE ---
0027-long pause noted on rhythm strip. This nurse went to patient's room and found him highly agitated and trying to climb oob. Med/surg nurse came into room and spoke with the patient to calm him down and he did calm down.Nursing Note:
[2024-10-10] MEDS: Umeclidinium 7 CAP INHALER IH (08:30)
--- NOTE | 2024-10-10 09:02 | CHAPLAIN ---
Toy was sleeping when I visited yesterday and I spoke with his Fabi. She explained that Toy went to the ED at [facility] near their home, returned home, went back to the ED and then was transferred here. She said it's [place] about [place] drive in good weather. I asked about supports for her, and Fabi said they have adult children who are not too far away, and a very helpful neighbor who is taking care of their dog for her.
[2024-10-10] MEDS: Normal Saline Flush 10 ML SYR IVP ×2 (11:56→19:29)
--- NOTE | 2024-10-10 15:19 | PGE_ITS ---
Date of Service Date of service: 10/10/24 Time of Service: 15:19 Assessment and Plan Assessment and plan (1) Pneumonia: Status: Acute Assessment and plan: -Patient appears to have failed outpatient therapy which was Augmentin and doxycycline. -While he was in the other ED he was given Rocephin and doxycycline. -Was started on cefepime and ciprofloxacin but patient had reaction to Cipro was changed to azithromycin -Patient now on p.o. azithromycin and cefpodoxime (2) Acute respiratory failure with hypoxia: Status: Acute Assessment and plan: - Secondary to pneumonia as noted above -Currently on 1 L nasal cannula, wean as tolerated (3) Delirium: Status: Acute Assessment and plan: -Likely due to combination of hospital induced delirium as well as some steroid- induced psychosis as patient was on IV methylprednisolone for 72 hours -No metabolic causes can be found as BMP is within normal limits, ammonia level negative, VBG without hypercapnia -IV steroids have been discontinued and transition to p.o. prednisone 40 mg daily started 10/10/2024 -Continue to orient patient and work on sleep hygiene (4) Hypertension: Assessment and plan: -BP improved on home losartan and metoprolol long acting (5) Hyperkalemia: Status: Acute Assessment and plan: -K was up to 5.6, improved s/p Lokelma -K now WNL (6) JUNIOR (acute kidney injury): Status: Acute Assessment and plan: -Cr up to 1.4, unknown baseline -f/u AM BMP (7) Incomplete emptying of bladder: Status: Acute Assessment and plan: -Newsome is in place with light colored urine (8) Diastolic heart failure: Assessment and plan: -Pt with an elevated bnp at outlying facility -TTE LVEF 45-50% with global hypokinesis (9) Tremor: Status: Acute Assessment and plan: - Patient has a history of documented tremor but does not have Parkinson's as per neurologist Dr. 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 He was resting comfortably this morning and appears to be waking up more throughout the day. Explained patients case to his , son and daughter and they are all understanding of the plan to monitor for eventual improvement in his mental status. Exam Narrative Exam Narrative: Fatigued, she confused older gentleman sitting up in the chair in no acute distress, awakens to verbal stimuli but only moans at this time (baseline is ANO x 4 with some short-term memory loss), heart regular rhythm, lungs clear to auscultation bilaterally, abdomen soft, nontender, nondistended Objective Last Vital Signs Temp 97.9 F 10/10/24 05:37 Pulse 64 10/10/24 05:37 Resp 20 10/10/24 05:37 BP 113/52 L 10/10/24 05:37 Pulse Ox 91 L 10/10/24 08:32 Time Spent with Patient Time Spent with Patient: >50 minutes Time was spent: preparing to see the patient(eg.review tests), obtaining and/or reviewing separately otained hiistory, ordering medications,tests, procedures, referring, communicating with other health assisted living care manager, indepentently interpreting results, counseling the patient and care coordination
--- NOTE | 2024-10-10 16:15 | PT.INNT ---
PT Notes Visit Reasons: COPD Pt approached for treatment x 2 . Pt initially did not responde to verbal or tactile stimulus. Nurse notified this PT that pt received sedating medication overnight. On second attempt he moaned with tactile stimulus but was not able to participate. Nurse recommended to hold treatment for today.
--- NOTE | 2024-10-10 18:20 | CMPROGNOTE_ITS ---
Date of service: 10/10/24 Time of Service: 18:20 Care Management Progress Note Progress Note Text Progress Note Text: Toy was sleeping when CM attempted to visit with him. Per RN, he has not been able to communicate today, after being medicated overnight. He is being closely monitored for improvement in his mental status. MD spoke to his family today and provided an update on his plan of care. CM will continue to follow. Discharge Potential Discharge Needs: PCP F/U Appt Anticipated Barriers to Discharge: Medical Status Patient/Family Education Needs: Review discharge instructions, discuss Ask Me Three Transportation: Private vehicle Plan: Anticipate Toy will be discharged home, possibly with new home health services, when medically cleared. Physical Therapy is recommending SNF vs home health PT. Yousuf will follow up with his community providers and plan of care and transport with family. CM will follow and continue to assess for discharge needs. Social Determinants of Health Screening Social Determinants of Health last assessed: 10/10/24 Will the Patient Participate in the Screening?: Yes Do you worry about having a steady place to live?: no Problems where you live: no known problems In the past 12 months, have you had to go without electric, gas, oil or water in your home?: no Have you or anyone in your house had to go without enough food to eat?: no Has lack of transportation kept you from medical appointments or from doing things needed for daily living?: no Has anyone in your life made you feel unsafe or unsupported?: no How hard is it for you to pay for the very basics like food, housing, medical care, and heating? Would you say it is:: Not hard at all Do you want help finding or keeping work or a job?: I do not need or want help If for any reason you need help with day-to-day activities such as bathing, preparing meals, shopping, managing finances, etc., do you get the help you need?: I don?t need any help How often do you feel lonely or isolated from those around you?: Often Do you speak a language other than Dive[place] at home?: No Does the patient want assistance with any of the above?: No Health Related Social Needs Health related social needs: feeling lonely/isolated (Z60.8)
[2024-10-10] MEDS: Acetaminophen 325 MG TAB PO (20:56)
[2024-10-10] MEDS: Cefpodoxime 200 MG TAB PO (20:56)
[2024-10-10] MEDS: hydrALAZINE 20 MG/ML VIAL 10 MG IVP (21:52)
[2024-10-11] MEDS: diphenhydrAMINE 25 MG CAP PO (00:09)
[2024-10-11] MEDS: Normal Saline Flush 10 ML SYR IVP ×2 (02:08→09:28)
[2024-10-11 03:42] VITALS: BP 182/80; PULSE 79; RESP 16; TEMP 36.2; O2SAT 93
[2024-10-11] MEDS: hydrALAZINE 20 MG/ML VIAL 10 MG IVP (04:07)
[2024-10-11] MEDS: Enoxaparin 40 MG/0.4 ML SYR SC ×2 (06:02→17:46)
[2024-10-11] MEDS: Levothyroxine 150 MCG TAB PO (06:07)
[2024-10-11 06:44] LABS: Abs Immature Grans 0.04 10^3/uL (0.0-0.06); Absolute Basophil Count 0.01 10^3/uL (0.0-0.2); Absolute Lymphocyte Count 1.47 10^3/uL (1.2-3.4); Absolute Monocyte Count 0.85 10^3/uL (0.1-0.8); Absolute Neutrophil Count 6.13 10^3/uL (1.2-6.7); Basophils % 0.1 %; Eosinophils % 1.2 %; HCT 30.6 % (40.0-50.0); Immature Grans % 0.5 %; Lymphocytes % 17.1 %; MCH 30.6 pg (27.0-33.0); MCHC 32.7 % (32.0-36.0); MCV 94 fL (80-95); MPV 9.7 fL (8.0-11.0); Monocytes % 9.9 %; Neutrophils % 71.2 %; Nucleated RBC 0.5 % (0.0-0.3); Platelet Count 175 10^3/uL (130-400); RBC 3.27 10^6/uL (4.36-5.78); RDW 16.2 % (11.8-14.1); RDW-SD 55.6 fL
[2024-10-11 07:15] LABS: ALT 18 U/L (16-63); AST 24 U/L (15-37); Albumin 2.5 g/dL (3.4-5.0); Alkaline Phosphatase 132 U/L (46-116); Anion Gap 6.5 mmol/L (3-11); BUN 49 mg/dL (7-18); Bilirubin, Total 0.51 mg/dL (0.2-1.0); CO2 28.5 mmol/L (21.0-32.0); CREATININE 1.4 mg/dL (0.70-1.30); Calcium 9.4 mg/dL (8.5-10.1); Chloride 109 mmol/L (98-107); Glucose 72 mg/dL (74-106); Potassium 4.4 mmol/L (3.5-5.1); Sodium 144 mmol/L (136-145)
[2024-10-11] MEDS: Umeclidinium 7 CAP INHALER IH (07:43)
[2024-10-11 08:05] VITALS: BP 176/85; PULSE 85; RESP 16; TEMP 36.2; O2SAT 95
[2024-10-11] MEDS: Cholecalciferol (Vitamin D3) 1,000 UNIT TAB 1000 UNITS PO (09:29)
[2024-10-11] MEDS: Cyanocobalamin 500 MCG TAB 1000 MCG PO (09:29)
[2024-10-11] MEDS: Losartan 25 MG TAB PO (09:30)
[2024-10-11] MEDS: Tamsulosin 0.4 MG CAPCR PO (09:30)
[2024-10-11] MEDS: lamoTRIgine 100 MG TAB 250 MG PO (09:30)
[2024-10-11] MEDS: predniSONE 20 MG TAB 30 MG PO (09:30)
[2024-10-11] MEDS: Cefpodoxime 200 MG TAB PO ×2 (09:30→20:23)
[2024-10-11] MEDS: Metoprolol CR 100 MG TABCR PO (09:31)
--- NOTE | 2024-10-11 10:01 | PDOC.CMPRO ---
Date of service: 10/11/24 Time of Service: 10:01 Care Management Progress Note Progress Note Text Progress Note Text: Yousuf was sitting up in a chair visiting with his Fabi when CM met with him. He was bright and alert and recognized CM from earlier in the week. Yousuf continues to work with PT and is making some progress. Fabi shared that he was able to stand for several minutes with his walker this morning. Her main criteria for bringing Yousuf home is that he be able to stand long enough to pivot bed to chair or W/C. Neither Yousuf nor his family are interested in rehab; they prefer to take him home. CM explained that when he is medically ready for discharge, even if he still requires assistance, he will need to be discharged either home or to a SNF. With the census and staffing issues that [facility] are experiencing right now, swing bed admission is not an option. Discharge Potential Discharge Needs: PCP F/U Appt Anticipated Barriers to Discharge: Medical Status Patient/Family Education Needs: Review discharge instructions, discuss Ask Me Three Transportation: Private vehicle Plan: Anticipate Toy will be discharged home, possibly with new home health services, when medically cleared. Physical Therapy is recommending SNF vs home health PT. Yousuf will follow up with his community providers and plan of care and transport with family. CM will follow and continue to assess for discharge needs. Social Determinants of Health Screening Social Determinants of Health last assessed: 10/11/24 Will the Patient Participate in the Screening?: Yes Do you worry about having a steady place to live?: no Problems where you live: no known problems In the past 12 months, have you had to go without electric, gas, oil or water in your home?: no Have you or anyone in your house had to go without enough food to eat?: no Has lack of transportation kept you from medical appointments or from doing things needed for daily living?: no Has anyone in your life made you feel unsafe or unsupported?: no How hard is it for you to pay for the very basics like food, housing, medical care, and heating? Would you say it is:: Not hard at all Do you want help finding or keeping work or a job?: I do not need or want help If for any reason you need help with day-to-day activities such as bathing, preparing meals, shopping, managing finances, etc., do you get the help you need?: I don?t need any help How often do you feel lonely or isolated from those around you?: Often Do you speak a language other than [place] at home?: No Does the patient want assistance with any of the above?: No Health Related Social Needs Health related social needs: feeling lonely/isolated (Z60.8)
[2024-10-11] MEDS: Divalproex Sodium 500 MG TAB.ER.24H 1500 MG PO (10:40)
--- NOTE | 2024-10-11 11:21 | PGE_ITS ---
Date of Service Date of service: 10/11/24 Time of Service: 11:21 Assessment and Plan Assessment and plan (1) Pneumonia: Status: Acute Assessment and plan: -Patient appears to have failed outpatient therapy which was Augmentin and doxycycline. -While he was in the other ED he was given Rocephin and doxycycline. -Was started on cefepime and ciprofloxacin but patient had reaction to Cipro was changed to azithromycin -Patient now on p.o. azithromycin and cefpodoxime (2) Acute respiratory failure with hypoxia: Status: Acute Assessment and plan: - Secondary to pneumonia as noted above -Currently on 1 L nasal cannula, wean as tolerated (3) Delirium: Status: Acute Assessment and plan: -Likely due to combination of hospital induced delirium as well as some steroid- induced psychosis as patient was on IV methylprednisolone for 72 hours -No metabolic causes can be found as BMP is within normal limits, ammonia level negative, VBG without hypercapnia -IV steroids have been discontinued and transition to p.o. prednisone 40 mg daily started 10/10/2024 -Patients mental status is significantly improved as of AM 10/11 as he is able to have full conversation (though he is understandably tired) -will continue to work with patient and monitor ongoing mental status improvement (4) Hypertension: Assessment and plan: -BP improved on home losartan and metoprolol long acting (5) Hyperkalemia: Status: Acute Assessment and plan: -K was up to 5.6, improved s/p Lokelma -K now WNL (6) JUNIOR (acute kidney injury): Status: Acute Assessment and plan: -Cr up to 1.4, unknown baseline -f/u AM BMP (7) Incomplete emptying of bladder: Status: Acute Assessment and plan: -Newsome is in place with light colored urine (8) Diastolic heart failure: Assessment and plan: -Pt with an elevated bnp at outlying facility -TTE LVEF 45-50% with global hypokinesis (9) Tremor: Status: Acute Assessment and plan: - Patient has a history of documented tremor but does not have Parkinson's as per neurologist Dr. 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 He is still a little tired and touch forgetful, but is much closer to his baseline as compared to previous days. Exam Narrative Exam Narrative: Fatigued, older gentleman laying in bed in no acute distress, awake, alert, oriented to person, place and situation, heart regular rhythm, lungs clear to auscultation bilaterally, abdomen soft, nontender, nondistended Objective Last Vital Signs Temp 97.2 F L 10/11/24 08:05 Pulse 85 10/11/24 08:05 Resp 16 10/11/24 08:05 BP 176/85 H 10/11/24 08:05 Pulse Ox 95 10/11/24 08:05 Laboratory Results - last 24 hr 10/11/24 06:30 WBC 8.60 RBC 3.27 L Hgb 10.0 L Hct 30.6 L MCV 94 MCH 30.6 MCHC 32.7 RDW 16.2 H Plt Count 175 MPV 9.7 Immature Gran % 0.5 Neutrophils % 71.2 Lymphocytes % 17.1 Monocytes % 9.9 Eosinophils % 1.2 Basophils % 0.1 Nucleated RBC % 0.5 H Absolute Neutrophils 6.13 Absolute Lymphocytes 1.47 Absolute Monocytes 0.85 H Absolute Eosinophils 0.10 Absolute Basophils 0.01 Sodium 144 Potassium 4.4 Chloride 109 H Carbon Dioxide 28.5 Anion Gap 6.5 BUN 49 H Creatinine 1.4 H Est GFR (CKD-EPI 2020) 53.40 Glucose 72 L Calcium 9.4 Total Bilirubin 0.51 AST 24 ALT 18 Alkaline Phosphatase 132 H Total Protein 7.0 Albumin 2.5 L Time Spent with Patient Time Spent with Patient: >50 minutes Time was spent: preparing to see the patient(eg.review tests), obtaining and/or reviewing separately otained hiistory, ordering medications,tests, procedures, referring, communicating with other health managed care analyst, indepentently interpreting results, counseling the patient and care coordination
--- NOTE | 2024-10-11 11:44 | PTTR_ITS ---
PT Notes Visit Reasons: COPD Inpatient Physical Therapy Treatment Note [facility] Date: 10/11/2024 PRECAUTIONS:IV access BUE, oxygen currently at 1L/min order to titrate , barron , telemetry, fall risk, Standard precautions SUBJECTIVE:Pt reports he is okay. OBJECTIVE: pt semireclined in bed with oxygen at 1L/min via NC telemetry in place , barron to bedside drainage. and son visiting. Pt alert able to have full conversation and follow all instructions. Pt laughing and joking with his family. PAIN: pt noted tenderness to left heel but denied pain. VITALS: ?monitored via telemetry throughout Therapeutic Activities (46583): Direct one-on-one instruction in dynamic activities to improve functional performance. ?? Provided skilled cues and instruction on performance and technique throughout. ? BED MOBILITY/TRANSFERS? Rolling L/R: mod A of 2 with rails Supine-sit: with HOB at 50 degrees mod A of 1 with increased time and a rest period after legs over edge of bed? Sit-stand: Min A of 2 with BUE pulling on FWW?x 3 trials ? Stand-sit: Min A of 2 with BUE on FWW?x 3 trials ? Bed-Chair:Steadylift 2 assist? Pt required min A of 1 CGA of 1 to pull to stand at Steady lift pt able to sustain spring coiling machine setter steadi lift for 89 sec without support at buttocks . to allow for hygiene. ASSESSMENT: pt tolerated session well and able to perform multiple sit to stand at FWW from bed and pull to spring coiling machine setter steadi lift . Pt with increased functional activity tolerance for hygiene while standing. Pt pulls to stand at home on a bar next to his bed and then pull to stand at walker for step turn . Pt's and son encouraged by his clarity today and his ability to perform and participate. PLAN: 1-2x/day, 7 days/week x 1 week. Plan of care has been reviewed with the REGULATORY AFFAIRS ASSOCIATE providing the service under Physical Therapy direction. Initiate Physical Therapy intervention for strengthening, bed mobility, transfers, gait, stairs, balance training, use of assistive device. TREATMENT CODE/TIME: 84655/ [id number] DISCHARGE RECOMMENDATION: SNF vs HHPT
[2024-10-11 11:47] VITALS: BP 173/79; PULSE 68; RESP 16; TEMP 36.5; O2SAT 97
[2024-10-11 16:00] VITALS: BP 177/98; PULSE 63; RESP 16; TEMP 36.8; O2SAT 97
--- NOTE | 2024-10-11 16:39 | PT.INTREAT ---
Date of service: 10/11/24 Time of Service: 03:30 PT Notes Visit Reasons: COPD Inpatient Physical Therapy Treatment [facility] Date: 10/11/2024 PRECAUTIONS: IV access BUE, oxygen currently at 1L/min order to titrate , barron , telemetry, fall risk, Standard precautions SUBJECTIVE: Stated he is ready to return to bed. indicated that he is not very motivated to move. Willing to psychology intern steady lift x3. Patient apologized to his for making so much work for her. OBJECTIVE: ? PAIN: No complaints of pain. Expressed significant effort with standing in place in Stedy lift. VITALS: Telemetry being monitored ? Therapeutic Activities ([id number] - 25 minutes): Direct one-on-one instruction in dynamic activities to improve functional performance. ? BED MOBILITY/TRANSFERS? Rolling L/R: mod assist of 2 with rolling from right to supine? Sit-supine: Mod assist of 2 ? Sit-stand: Mod assist of 2, chair to stedy? Stand-sit: Mod assist of 2, stedy to bed? Bed-Chair: Stedy lift ? Provided skilled cues and instruction on performance and technique throughout. Standing in Stedy Lift with CGA of 2 ? Weight bearing: full Assist: CGA of 2 ? Able to static psychology intern Stedy for 1 minute x 2 and 20 second x 1 ? Deviation: Leans to left and requires verbal cueing to stand up straight? Discussed doing ankle pumps, quad sets and glute sets while lying in bed, several times every 2 or 3 hours to keep muscles moving.? ASSESSMENT:?Is able to help pull himself up into Stedy lift but this does seem very challenging for him. Is able to psychology intern Stedy for short periods, but fatigue quickly. PLAN: Continue with transfer training for improved functional mobility. TREATMENT CODE/TIME: 50057u 2, 3:30 to 3:55 (25 minutes) DISCHARGE RECOMMENDATION: SNF vs HHPT
[2024-10-11 19:50] VITALS: BP 162/67; PULSE 75; RESP 17; TEMP 35.8; O2SAT 94
[2024-10-11 23:18] VITALS: BP 179/80; PULSE 68; RESP 17; TEMP 36.5; O2SAT 98
[2024-10-12] VITALS (7 sets, daily range): BP systolic 147–184; BP diastolic 62–88; PULSE 65–72; RESP 15–17; TEMP 35.4–36.9; O2SAT 89–95
[2024-10-12] MEDS: hydrALAZINE 20 MG/ML VIAL 10 MG IVP (03:30)
[2024-10-12] MEDS: Acetaminophen 325 MG TAB PO ×2 (03:36→20:16)
[2024-10-12] MEDS: Levothyroxine 150 MCG TAB PO (06:10)
[2024-10-12] MEDS: Enoxaparin 40 MG/0.4 ML SYR SC ×2 (06:11→17:21)
[2024-10-12] MEDS: Umeclidinium 7 CAP INHALER IH (07:51)
[2024-10-12] MEDS: Normal Saline Flush 10 ML SYR IVP (07:54)
[2024-10-12] MEDS: lamoTRIgine 100 MG TAB 250 MG PO (07:55)
[2024-10-12] MEDS: Cefpodoxime 200 MG TAB PO ×2 (07:55→20:13)
[2024-10-12] MEDS: predniSONE 10 MG TAB 30 MG PO (07:55)
[2024-10-12] MEDS: Divalproex Sodium 500 MG TAB.ER.24H 1500 MG PO (07:55)
[2024-10-12] MEDS: Cyanocobalamin 500 MCG TAB 1000 MCG PO (07:55)
[2024-10-12] MEDS: Cholecalciferol (Vitamin D3) 1,000 UNIT TAB 1000 UNITS PO (07:55)
[2024-10-12] MEDS: Losartan 25 MG TAB PO (07:55)
[2024-10-12] MEDS: Tamsulosin 0.4 MG CAPCR PO (07:56)
[2024-10-12] MEDS: Metoprolol CR 100 MG TABCR PO (07:56)
--- NOTE | 2024-10-12 08:52 | PGE_ITS ---
Date of Service Date of service: 10/12/24 Time of Service: 08:52 Assessment and Plan Assessment and plan (1) Pneumonia: Status: Acute Assessment and plan: -Patient appears to have failed outpatient therapy which was Augmentin and doxycycline. -While he was in the other ED he was given Rocephin and doxycycline. -Was started on cefepime and ciprofloxacin but patient had reaction to Cipro was changed to azithromycin -Patient now on p.o. azithromycin and cefpodoxime (2) Acute respiratory failure with hypoxia: Status: Acute Assessment and plan: - Secondary to pneumonia as noted above -Had been down to 1 L nasal cannula as of a.m. 10/11/2024 but has transition to room air as of a.m. 10/12/2024 (3) Delirium: Status: Acute Assessment and plan: -Likely due to combination of hospital induced delirium as well as some steroid- induced psychosis as patient was on IV methylprednisolone for 72 hours -No metabolic causes can be found as BMP is within normal limits, ammonia level negative, VBG without hypercapnia -IV steroids have been discontinued and transition to p.o. prednisone 40 mg daily started 10/10/2024 -Patients mental status is significantly improved as of AM 10/11 as he is able to have full conversation (though he is understandably tired) -will continue to work with patient and monitor ongoing mental status improvement (4) Hypertension: Assessment and plan: -BP improved on home losartan and metoprolol long acting (5) Hyperkalemia: Status: Acute Assessment and plan: -K was up to 5.6, improved s/p Lokelma -K now WNL (6) JUNIOR (acute kidney injury): Status: Acute Assessment and plan: -Cr up to 1.4, unknown baseline -f/u AM BMP (7) Incomplete emptying of bladder: Status: Acute Assessment and plan: -Newsome is in place with light colored urine (8) Diastolic heart failure: Assessment and plan: -Pt with an elevated bnp at outlying facility -TTE LVEF 45-50% with global hypokinesis (9) Tremor: Status: Acute Assessment and plan: - Patient has a history of documented tremor but does not have Parkinson's as per neurologist Dr. 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 He has no complaints or concerns at this time. Exam Narrative Exam Narrative: Fatigued, older gentleman laying in bed in no acute distress, awake, alert, oriented to person, place and situation, heart regular rhythm, lungs clear to auscultation bilaterally, abdomen soft, nontender, nondistended Objective Last Vital Signs Temp 95.7 F L 10/12/24 08:08 Pulse 65 10/12/24 08:08 Resp 15 10/12/24 08:08 BP 147/68 H 10/12/24 08:08 Pulse Ox 89 L 10/12/24 08:42 Time Spent with Patient Time Spent with Patient: >50 minutes Time was spent: preparing to see the patient(eg.review tests), obtaining and/or reviewing separately otained hiistory, ordering medications,tests, procedures, referring, communicating with other health client care consultant, indepentently interpreting results, counseling the patient and care coordination
--- NOTE | 2024-10-12 13:13 | PTTR_ITS ---
PT Notes Visit Reasons: COPD SUBJECTIVE: When do I get to go home? OBJECTIVE:? in room feeding patient upon arrival. Reports he is having difficulty with feeding himself secondary to worsening of his tremor. Spoke with MARCIO Wheeler about requesting an OT consult for self feeding/weighted utensils that he is used to using at home. Treatment: Supine to sit with HOB elevated with mod assist with significant cuing and encouragement. sit to stand with bed slightly elevated with mod/max x 1 with standing anteriorly but not assisting. SPT with rolling walker with 1 step to the right with cuing with assist for walker and mod/max assist x 1 with patient suddenly not weight bearing and patient needing max assist to reach the chair safely. Able to scoot back in chair with cuing only. Assessment: Patient is a 74year old male referred to physical therapy services with the diagnosis of pneumonia. Improved mobility from yesterday but will need to be min assist for transfers consistently to return home with his . Plan: Continue PT daily tomorrow. ? hospital bed for home. Billing Charges: Treatment Units Time Duration Manual Therapy (98479) Hands-on techniques to modulate pain increase joint range of motion reduce or eliminate soft tissue swelling, inflammation, or restriction facilitate relaxation and improve contractile and non-contractile tissue extensibility Therapeutic Procedures (16095) Instruction in therapeutic exercises to develop strength and endurance, range of motion and flexibility. HEP instruction and review: Provided skilled instruction in proper exercise performance: Provided skilled manual cues to facilitate proper muscle recruitment and/or movement?pattern: Neurological Re-Education (32477) to improve balance, coordination, kinesthetic and proprioceptive sensations. Ultrasound (78781) to promote healing Gait Training (20267) Therapeutic Activity (34180) instruction in dynamic activitie s with one on one patient contact by the provider to improve functional performance as follows: 3 42 Self Care Training (98203) Time Coded Treatment Minutes: 42 Total Treatment Time: 42
[2024-10-13 00:33] VITALS: O2SAT 92
[2024-10-13] MEDS: Levothyroxine 150 MCG TAB PO (05:44)
[2024-10-13] MEDS: Enoxaparin 40 MG/0.4 ML SYR SC ×2 (05:44→17:05)
[2024-10-13 07:44] VITALS: BP 168/72; PULSE 60; RESP 20; TEMP 36.8; O2SAT 93
[2024-10-13] MEDS: Divalproex Sodium 500 MG TAB.ER.24H 1500 MG PO (07:47)
[2024-10-13] MEDS: Cyanocobalamin 500 MCG TAB 1000 MCG PO (07:47)
[2024-10-13] MEDS: Losartan 25 MG TAB PO (07:47)
[2024-10-13] MEDS: Cholecalciferol (Vitamin D3) 1,000 UNIT TAB 1000 UNITS PO (07:47)
[2024-10-13] MEDS: Metoprolol CR 100 MG TABCR PO (07:47)
[2024-10-13] MEDS: Cefpodoxime 200 MG TAB PO ×2 (07:47→19:54)
[2024-10-13] MEDS: Tamsulosin 0.4 MG CAPCR PO (07:47)
[2024-10-13] MEDS: predniSONE 10 MG TAB 30 MG PO (07:48)
[2024-10-13] MEDS: Normal Saline Flush 10 ML SYR IVP ×2 (07:48→23:33)
[2024-10-13] MEDS: lamoTRIgine 100 MG TAB 250 MG PO (07:48)
[2024-10-13] MEDS: Umeclidinium 7 CAP INHALER IH (09:41)
--- NOTE | 2024-10-13 11:34 | PTTR_ITS ---
Date of service: 10/13/24 Time of Service: 11:00 PT Notes Visit Reasons: COPD SUBJECTIVE: Reports difficulty with sit to stand machine overnight for toileting. OBJECTIVE:? Treatment: Sitting in recliner upon arrival. Sit to stand at bathroom bar from recliner 7x, mod assist first 2, then min assist second 5. standing 5-30 seconds each time Assessment: Patient is a 74year old male referred to physical therapy services with the diagnosis of pneumonia. Improved mobility from yesterday but will need to be min assist for transfers consistently to return home with his . Patient is more confident with use of bar in his ability to assist with sit to stand. Plan: Continue PT daily tomorrow. Expect d/c to rehab rather than home Billing Charges: Treatment Units Time Duration Manual Therapy (91151) Hands-on techniques to modulate pain increase joint range of motion reduce or eliminate soft tissue swelling, inflammation, or restriction facilitate relaxation and improve contractile and non-contractile tissue extensibility Therapeutic Procedures (42544) Instruction in therapeutic exercises to develop strength and endurance, range of motion and flexibility. HEP instruction and review: Provided skilled instruction in proper exercise performance: Provided skilled manual cues to facilitate proper muscle recruitment and/or movement?pattern: Neurological Re-Education (08618) to improve balance, coordination, kinesthetic and proprioceptive sensations. Ultrasound (41364) to promote healing Gait Training (87067) Therapeutic Activity (42399) instruction in dynamic activitie s with one on one patient contact by the provider to improve functional performance as follows: 2 32 Self Care Training (56494) Time Coded Treatment Minutes: 32 Total Treatment Time: 32
[2024-10-13 13:38] LABS: Abs Immature Grans 0.07 10^3/uL (0.0-0.06); Absolute Eosinophil Count 0.01 10^3/uL (0.0-0.7); Absolute Lymphocyte Count 0.56 10^3/uL (1.2-3.4); Absolute Monocyte Count 0.19 10^3/uL (0.1-0.8); Absolute Neutrophil Count 7.81 10^3/uL (1.2-6.7); Eosinophils % 0.1 %; HCT 33.6 % (40.0-50.0); HGB 10.8 g/dL (13.5-17.5); Immature Grans % 0.8 %; Lymphocytes % 6.5 %; MCH 30.2 pg (27.0-33.0); MCHC 32.1 % (32.0-36.0); MCV 94 fL (80-95); MPV 9.6 fL (8.0-11.0); Monocytes % 2.2 %; Neutrophils % 90.4 %; Platelet Count 172 10^3/uL (130-400); RBC 3.58 10^6/uL (4.36-5.78); RDW 15.7 % (11.8-14.1); RDW-SD 53.6 fL; WBC 8.64 10^3/uL (4.4-10.8)
[2024-10-13 14:31] VITALS: BP 160/80; PULSE 61; RESP 20; TEMP 36.4; O2SAT 93
--- NOTE | 2024-10-13 15:29 | PGE_ITS ---
Date of Service Date of service: 10/13/24 Time of Service: 15:29 Assessment and Plan Assessment and plan (1) Pneumonia: Status: Acute Assessment and plan: -Patient appears to have failed outpatient therapy which was Augmentin and doxycycline. -While he was in the other ED he was given Rocephin and doxycycline. -Was started on cefepime and ciprofloxacin but patient had reaction to Cipro was changed to azithromycin -Patient now on p.o. azithromycin and cefpodoxime (2) Acute respiratory failure with hypoxia: Status: Acute Assessment and plan: - Secondary to pneumonia as noted above -Had been down to 1 L nasal cannula as of a.m. 10/11/2024 but has transition to room air as of a.m. 10/12/2024 (3) Delirium: Status: Acute Assessment and plan: -Likely due to combination of hospital induced delirium as well as some steroid- induced psychosis as patient was on IV methylprednisolone for 72 hours -No metabolic causes can be found as BMP is within normal limits, ammonia level negative, VBG without hypercapnia -IV steroids have been discontinued and transition to p.o. prednisone 40 mg daily started 10/10/2024 -Patients mental status is significantly improved as of AM 10/11 as he is able to have full conversation (though he is understandably tired) -will continue to work with patient and monitor ongoing mental status improvement (4) Hypertension: Assessment and plan: -BP improved on home losartan and metoprolol long acting (5) Hyperkalemia: Status: Acute Assessment and plan: -K was up to 5.6, improved s/p Lokelma -K now WNL (6) JUNIOR (acute kidney injury): Status: Acute Assessment and plan: -Cr up to 1.4, unknown baseline -f/u AM BMP (7) Incomplete emptying of bladder: Status: Acute Assessment and plan: -Newsome is in place with light colored urine (8) Diastolic heart failure: Assessment and plan: -Pt with an elevated bnp at outlying facility -TTE LVEF 45-50% with global hypokinesis (9) Tremor: Status: Acute Assessment and plan: - Patient has a history of documented tremor but does not have Parkinson's as per neurologist Dr. 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 He and his family have agreed to have referrals sent out to [facility]. Exam Narrative Exam Narrative: Fatigued, older gentleman laying in bed in no acute distress, awake, alert, oriented to person, place and situation, heart regular rhythm, lungs clear to auscultation bilaterally, abdomen soft, nontender, nondistended Objective Last Vital Signs Temp 97.5 F L 10/13/24 14:31 Pulse 61 10/13/24 14:31 Resp 20 10/13/24 14:31 BP 160/80 H 10/13/24 14:31 Pulse Ox 93 10/13/24 14:31 Laboratory Results - last 24 hr 10/13/24 13:30 WBC 8.64 RBC 3.58 L Hgb 10.8 L Hct 33.6 L MCV 94 MCH 30.2 MCHC 32.1 RDW 15.7 H Plt Count 172 MPV 9.6 Immature Gran % 0.8 Neutrophils % 90.4 Lymphocytes % 6.5 Monocytes % 2.2 Eosinophils % 0.1 Basophils % 0.0 Nucleated RBC % 0.0 Absolute Neutrophils 7.81 H Absolute Lymphocytes 0.56 L Absolute Monocytes 0.19 Absolute Eosinophils 0.01 Absolute Basophils 0.00 Time Spent with Patient Time Spent with Patient: >50 minutes Time was spent: preparing to see the patient(eg.review tests), obtaining and/or reviewing separately otained hiistory, ordering medications,tests, procedures, referring, communicating with other health director medicare sales, indepentently interpreting results, counseling the patient and care coordination
--- NOTE | 2024-10-13 15:56 | CMPROGNOTE_ITS ---
Date of service: 10/13/24 Time of Service: 15:56 Care Management Progress Note Progress Note Text Progress Note Text: CM was asked to meet with Yousuf and his family to discuss discharge planning concerns. Yousuf was sitting up in a chair visiting with his , son and his son's girlfriend when CM entered the room. Fabi, Yousuf's , explained that yesterday the provider informed them that Yousuf would be medically ready for discharge on Monday. If he is not ready from a PT perspective, he would need to go to a SNF for STR or be discharged home with HH PT. The family chose to pursue rehab. They [facility] that [facility], which CM did. Discharge Potential Discharge Needs: Other (SNF) Anticipated Barriers to Discharge: Bed availability Patient/Family Education Needs: Review discharge instructions, discuss Ask Me Three Transportation: Private vehicle Plan: Anticipate that Yousuf will be transferred to a SNF for short term rehab prior to returning home. Referrals were sent by CM to [facility] at the family's request. Yousuf will follow up with the facility providers and plan of care and transport with family vs RCT. CM will follow and continue to support discharge planning efforts. Social Determinants of Health Screening Social Determinants of Health last assessed: 10/13/24 Will the Patient Participate in the Screening?: Yes Do you worry about having a steady place to live?: no Problems where you live: no known problems In the past 12 months, have you had to go without electric, gas, oil or water in your home?: no Have you or anyone in your house had to go without enough food to eat?: no Has lack of transportation kept you from medical appointments or from doing things needed for daily living?: no Has anyone in your life made you feel unsafe or unsupported?: no How hard is it for you to pay for the very basics like food, housing, medical care, and heating? Would you say it is:: Not hard at all Do you want help finding or keeping work or a job?: I do not need or want help If for any reason you need help with day-to-day activities such as bathing, preparing meals, shopping, managing finances, etc., do you get the help you need?: I don?t need any help How often do you feel lonely or isolated from those around you?: Often Do you speak a language other than Persian at home?: No Does the patient want assistance with any of the above?: No Health Related Social Needs Health related social needs: feeling lonely/isolated (Z60.8)
[2024-10-13 20:02] VITALS: BP 190/80; PULSE 62; RESP 20; TEMP 36.5; O2SAT 93
[2024-10-14] VITALS (7 sets, daily range): BP systolic 142–185; BP diastolic 60–94; PULSE 58–68; RESP 15–19; TEMP 35.3–35.9; O2SAT 90–95
[2024-10-14] MEDS: Normal Saline Flush 10 ML SYR IVP ×2 (03:22→09:13)
[2024-10-14] MEDS: hydrALAZINE 20 MG/ML VIAL 10 MG IVP (03:22)
[2024-10-14] MEDS: Levothyroxine 150 MCG TAB PO (06:26)
[2024-10-14] MEDS: Enoxaparin 40 MG/0.4 ML SYR SC ×2 (06:27→17:04)
[2024-10-14] MEDS: Umeclidinium 7 CAP INHALER IH (08:35)
[2024-10-14] MEDS: Divalproex Sodium 500 MG TAB.ER.24H 1500 MG PO (09:11)
[2024-10-14] MEDS: predniSONE 10 MG TAB 30 MG PO (09:12)
[2024-10-14] MEDS: Cefpodoxime 200 MG TAB PO ×2 (09:12→19:36)
[2024-10-14] MEDS: lamoTRIgine 100 MG TAB 250 MG PO (09:12)
[2024-10-14] MEDS: Losartan 25 MG TAB PO (09:13)
[2024-10-14] MEDS: Cyanocobalamin 500 MCG TAB 1000 MCG PO (09:13)
[2024-10-14] MEDS: Cholecalciferol (Vitamin D3) 1,000 UNIT TAB 1000 UNITS PO (09:13)
[2024-10-14] MEDS: Tamsulosin 0.4 MG CAPCR PO (09:13)
[2024-10-14] MEDS: Metoprolol CR 100 MG TABCR PO (09:13)
--- NOTE | 2024-10-14 12:47 | DSE_ITS ---
Date of service: 10/14/24 Time of Service: 12:47 DS: Diagnosis Discharge Diagnosis (1) Pneumonia: Status: Acute (2) Acute respiratory failure with hypoxia: Status: Acute (3) Delirium: Status: Acute (4) Hypertension: (5) Hyperkalemia: Status: Acute (6) JUNIOR (acute kidney injury): Status: Acute (7) Incomplete emptying of bladder: Status: Acute (8) Diastolic heart failure: (9) Tremor: Status: Acute Discharge Plan Disposition Patient Disposition: Alf Facility(SNF) Condition: Good Discharge Details Reason For Visit: COPD Admit Date/Time: 10/06/24 13:58 Admit Provider: Abelardo Dewey Attending Provider: Abelardo Dewey [facility] Course: Per H+P: This is a 74-year-old gentleman who was at [facility] but was transferred down here due to no bed availability at that facility. In reviewing the HPI is a 74-year-old gentleman with multiple medical problems including severe COPD reflux Parkinson's who presented to the hospital 2 days ago with increasing cough. Patient was treated for pneumonia with Augmentin and Doxy which he states he has been taking. Unfortunately this morning he developed worsening shortness of breath and came back into the ED for evaluation and treatment. In reviewing the diagnostic information the patient was noted to have hyperkalemia with a potassium of 5.8 without benign white count mild anemia with a hemoglobin of 10.8 hematocrit 33.3 and elevated BUN to creatinine ratio of 39/1.33 and a normal procalcitonin. I do not see any imaging documentation but he was transferred down here after given Rocephin and Doxy again via IV. Patient does give a fairly linear history but is very confused at times. Unfortunately his is not available to augment this history at this point. Patient was initially on outpatient abx, this was changed over to cefepime and cipro to broaden coverage. However, patient had a rxn to cipro and was ultimately treated with azithromycin. Cefepime was ultimaterly changed to cefpodoxime. PAtient was also started on IV steroids but had issues with confusion, felt to be steroid induced psychosis. These were changed over to PO prednisone 40mg PO daily with good response in patient's mentation. These were titrated here to 30mg with plans to titrate further after discharge. Worked with PT/OT, plan to discharge to SNF. Will continue 5 ore days of cefpodoxime alone along with long prednisone taper. To continue other resp meds (Anoro, Incuse), Discharge to [facility] later today. To follow with PCP. Home Meds and New Rx's Prescriptions: New prednisone 10 mg Tablet See Taper PO DAILY 5 Days Qty: 15 0RF Taper: Generic Taper 3 mg Daily for 3 Days and 0 Hour 2 mg Daily for 3 Days and 0 Hour 1 mg Daily for 3 Days and 0 Hour cefpodoxime 200 mg Tablet 200 mg PO BID 5 Days Qty: 10 0RF No Action Excedrin Extra Strength 250-250-65 mg tablet 1 tab PO Q6H PRN cholecalciferol (vitamin D3) 25 mcg (1,000 unit) capsule 25 mcg PO DAILY cyanocobalamin (vitamin B-12) [Vitamin B-12] 1,000 mcg tablet 1,000 mcg PO DAILY Incruse Ellipta 62.5 mcg/actuation blister with device 1 inh inhalation DAILY Qty: 30 12RF losartan 25 mg tablet 25 mg PO DAILY divalproex 500 mg tablet extended release 24 hr 1,500 mg PO DAILY epinephrine 0.3 mg/0.3 mL auto-injector 0.3 mg IM Q5-15M PRN Rx Instructions: do not exceed 3 doses per episode levothyroxine 150 mcg tablet 150 mcg PO DAILY red yeast rice 600 mg tablet 600 mg PO BID Rx Instructions: give with meal/snack Aimovig Autoinjector 70 mg/mL auto-injector 140 mg subcut QMONTH furosemide 40 mg tablet 40 mg PO DAILY Patient Comments: takes 40-80 if edema is noted or worsened. metoprolol succinate 100 mg tablet extended release 24 hr 100 mg PO DAILY lamotrigine 100 mg tablet 250 mg PO DAILY sildenafil (pulm.hypertension) 20 mg tablet 20 - 60 mg PO .COMPLEX MDD 3 tabs PRN (Reason: For ED) Qty: 30 3RF Rx Instructions: 20 - 60 mg orally as directed. Do NOT use more than max dosage in 24 hours. alfuzosin 10 mg tablet extended release 24 hr 10 mg PO DAILY Qty: 90 4RF Rx Instructions: administer after the same meal each day albuterol sulfate 90 mcg/actuation HFA aerosol inhaler 2 puff inhalation QID PRN (Reason: shortness of breath or wheezing) Qty: 8.5 6RF clotrimazole 1 % cream 1 applic topical BID PRN (Reason: itch) Qty: 45 1RF Anoro Ellipta 62.5-25 mcg/actuation blister with device 1 inh inhalation DAILY Discharge Instructions Referrals: NATHANIEL GOYAL MD [Primary Care Provider] - Activity:: Activity as Tolerated Equipment/Supplies:: No Equipment Needed Diet:: As Tolerated Discharge Orders Discharge Orders: Discharge Order (Routine); Ordered 10/14/24 Ordered By: Steven Bustillos DS: Summary Time Spent with Patient providing and/or coordinating discharge services: Greater than 30 minutes Status at Discharge Functional status at discharge: uses cane/walker Overall status at discharge: patient is not back to baseline Mental Status: mental status grossly normal Speech and Movement: speech and movement normal Mood: congruent mood Affect: normal affect Quality:SDOH Health Related Social Needs: Health related social needs feeling lonely/isolated (Z 60.8) Exam Psych Mental Status: mental status grossly normal Speech and Movement: speech and movement normal Mood: congruent mood Affect: normal affect DS: Data Vitals/I&O Vitals and I&O: Vital Signs Temperature 35.9 C L 10/14/24 07:41 Temperature Source Temporal Artery Scan 10/14/24 07:41 Pulse 66 10/14/24 07:41 Pulse Rhythm Regular 10/06/24 14:42 Respiratory Rate 15 10/14/24 07:41 Respiratory Effort Labored 10/06/24 14:42 Respiratory Depth Deep 10/06/24 14:42 Respiratory Pattern Normal 10/06/24 14:42 Blood Pressure 155/69 H 10/14/24 07:41 Pulse Oximetry 90 L 10/14/24 07:41 Oxygen Delivery Method Room Air 10/14/24 07:41 Oxygen Flow Rate 0 10/14/24 07:41 Pain Level 0 10/13/24 20:02 Comment RN notified 10/12/24 08:08 Intake & Output 10/13/24 10/14/24 10/14/24 23:59 11:59 23:59 Intake Total Output Total 1000 / 1450 350 / 350 Balance -995 / -1425 -350 / -350 Weight 138.5 kg Intake: IV Output: Urine 1000 / 1450 350 / 350 Other: Urine Color Yellow Yellow Urine Appearance Cloudy Cloudy Data Completed and Pending Labs on day of discharge: Labs from last 24 hours 10/13/24 13:30 WBC 8.64 RBC 3.58 L Hgb 10.8 L Hct 33.6 L MCV 94 MCH 30.2 MCHC 32.1 RDW 15.7 H Plt Count 172 MPV 9.6 Immature Gran % 0.8 Neutrophils % 90.4 Lymphocytes % 6.5 Monocytes % 2.2 Eosinophils % 0.1 Basophils % 0.0 Nucleated RBC % 0.0 Absolute Neutrophils 7.81 H Absolute Lymphocytes 0.56 L Absolute Monocytes 0.19 Absolute Eosinophils 0.01 Absolute Basophils 0.00 PFSH All Active Problems (Updated 10/09/24 @ 13:38 by Stephan Perez MD) Tremor (Acute) Acute respiratory failure with hypoxia (Acute) Delirium (Acute) Alcohol abuse (Chronic) Mitral stenosis (Acute) Moderate mitral regurgitation (Acute) Severe tricuspid regurgitation (Acute) Fibrillation, atrial (Chronic) Hydrothorax (Acute) Cholelithiases (Acute) Cirrhosis (Acute) Ascites (Acute) Total bilirubin, elevated (Acute) Elevated d-dimer (Acute) Elevated brain natriuretic peptide (BNP) level (Acute) Elevated MCV (Acute) Thrombocytopenia (Chronic) Elevated INR (Acute) Pleural effusion (Acute) Respiratory distress (Acute) JUNIOR (acute kidney injury) (Acute) Pneumonia (Acute) Hyperkalemia (Acute) Renal cyst (Acute) Incomplete emptying of bladder (Acute) Recurrent UTI (Acute) Dyspnea on exertion (Acute) Hypoventilation (Acute) Cerebellar atrophy (Acute) Autonomic orthostatic hypotension (Acute) BPH w urinary obs/LUTS (Acute) Benign paroxysmal vertigo (Acute) Anemia (Chronic) Sensorineural hearing loss, bilateral (Acute) Dizziness (Acute) Memory changes (Acute) Neuropathy, idiopathic (Acute) IBS (irritable bowel syndrome) (Chronic) Frequent falls (Acute) Diplopia (Acute) Localized edema (Acute) Nail dystrophy (Acute) Lumbar stenosis (Acute) Post concussion syndrome (Acute) Aug and Dec, 2021 Syncope (Chronic) Cervical myelopathy (Acute) Tremor (Acute) Migraine aura without headache (Acute) Left arm pain (Acute) Babinski reflex (Acute) Medical History Oral cancer Spinal stenosis in cervical region Snoring Neck pain Meniscus, lateral, derangement Amnesia Talipes planovalgus Sustained SVT PTSD (post-traumatic stress disorder) Parkinsonism Obstructive sleep apnea History of neck pain MRSA (methicillin resistant Staphylococcus aureus) Hypomania Hydronephrosis Essential tremor Erectile dysfunction Chronic deep venous thrombosis Cervical spondylosis with myelopathy Cervical radiculopathy Bronchospasm Retrograde amnesia Depression Migraine headache with aura Impaired glucose tolerance Nocturia Achilles tendinitis Degeneration of intervertebral disc of lumbosacral region Microscopic hematuria History of IBS GERD (gastroesophageal reflux disease) Exercise induced bronchospasm Lymphedema Deep vein thrombosis Diastolic heart failure Supraventricular tachycardia Hypertension BPPV (benign paroxysmal positional vertigo) Chronic posttraumatic stress disorder Anxiety Bipolar disorder Anemia of chronic disease Obesity Hyperlipidemia Hypothyroidism Multiple lipomas Malignant tumor of tongue Surgical History H/O cervical spine surgery 05/14/2021 [facility] [place] History of esophagogastroduodenoscopy (EGD) History of excision of pilonidal cyst 1964 History of back surgery 1988 History of excision of lesion tongue x 2 2011 History of orthopedic surgery 07/24/2013 S/P total knee arthroplasty Hx of colonoscopy 10/07/19 History of tonsillectomy H/O hernia repair Artificial knee joint present R TKA 2014 Family History Father , AT 73 KIDNEY FAILURE Bladder cancer Renal failure Stomach ulcer Mother , AT 85 Arthritis Migraine Obesity Son Migraine Sister Arthritis Social History Smoking/Tobacco Use Status: Former Tobacco Use Quit Date: 08/21/88 Tobacco: How many years used: 30 Smoking risk assessment performed?: Yes Alcohol Intake: former Details: QUIT 2007 Drug use: Never Household members: spouse Housing: house Number of Children: 3 number of grandchildren: 5 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 Time Spent with Patient Time Spent with Patient: <45 minutes Time was spent: preparing to see the patient(eg.review tests), indepentently interpreting results, counseling the patient and care coordination
--- NOTE | 2024-10-14 13:51 | PDOC.CMPRO ---
Date of service: 10/14/24 Time of Service: 13:51 Care Management Progress Note Progress Note Text Progress Note Text: Yousuf was sitting up in a chair when CM met with him. He was smiling and appeared to be in good spirits. His son was visiting early in the day then his Fabi came to see him a little later on. Yousuf received a bed offer from [facility] in [place] which he happily accepted. Efforts were made to have him admitted today however, for a variety of reason, he will not be able to transfer until tomorrow. Yousuf still has a barron catheter that was inserted because he was retaining urine. His requested that the barron be removed and CM communicated the request to the provider. Discharge Potential Discharge Needs: Other (SNF) Anticipated Barriers to Discharge: Other Patient/Family Education Needs: Review discharge instructions, discuss Ask Me Three Transportation: RCT (wheelchair van) RCT Transportation: Wheel chair van Plan: Yousuf will be transferred to [facility] for short term rehab prior to returning home, likely tomorrow. A bed offer has been received and accepted. Yousuf will follow up with the facility providers and plan of care and transport via RCT w/c van. Yousuf has his own wheelchair at [facility] which can be used for the transport. CM will follow and continue to support discharge planning efforts. Social Determinants of Health Screening Social Determinants of Health last assessed: 10/14/24 Will the Patient Participate in the Screening?: Yes Do you worry about having a steady place to live?: no Problems where you live: no known problems In the past 12 months, have you had to go without electric, gas, oil or water in your home?: no Have you or anyone in your house had to go without enough food to eat?: no Has lack of transportation kept you from medical appointments or from doing things needed for daily living?: no Has anyone in your life made you feel unsafe or unsupported?: no How hard is it for you to pay for the very basics like food, housing, medical care, and heating? Would you say it is:: Not hard at all Do you want help finding or keeping work or a job?: I do not need or want help If for any reason you need help with day-to-day activities such as bathing, preparing meals, shopping, managing finances, etc., do you get the help you need?: I don?t need any help How often do you feel lonely or isolated from those around you?: Often Do you speak a language other than Cook Islander at home?: No Does the patient want assistance with any of the above?: No Health Related Social Needs Health related social needs: feeling lonely/isolated (Z60.8)
--- NOTE | 2024-10-14 15:07 | INPN_ITS ---
PT Notes Visit Reasons: COPD Inpatient Physical Therapy Progress Note Date:10/14/2024 Dates of Service: 10/07/2024-10/14/2024 PRECAUTIONS:Fall risk, Standard, barron SUBJECTIVE: Pt reports he is feeling much better than he was last week. His is pleased with his progress. OBJECTIVE PAIN: denies BED MOBILITY/TRANSFERS Rolling L/R: mod A of 2 with rails Supine-sit: Mod A of 2 Sit-supine: mod A of 2 Sit-stand: pull to stand from chair or bed with min to mod A of 1 depending on height of surface. Stand-sit: mod A of 1 from FWW and min A of 1 from grab bar pt able to assist in controlling decent to chair. At this time he is unable to reach back prior to sitting. Bed-Chair: Steadi lift with 2 assist Chair-bed: Steadi lift with 2 assist Pt stand at grab bar with min A of 1 x 25 sec x 3 trials and 15 sec x 2 trials GAIT Unable at this time VITALS: maintaining sats >90 % THEREX: Pt performs AAROM heelslides, hip abduction, AROM Quad sets, glute sets; seated LAQ ankle pumps and marching.10 reps STAIRS: not applicable Patient is a 74year old male referred to physical therapy services with the diagnosis of pneumonia. Patient presents with clinical signs and symptoms consistent with admitting diagnosis, as demonstrated by the following impairment level findings: 1. Impaired strength/motor control bilateral upper extremity and lower extremity major muscle groups 2. Impaired sitting and standing balance 3. Decline in functional activity tolerance 4. Impaired breath control and pacing techniques Impairments are contributing to the following functional limitations: 1. AMPAC score. 2. Decline in bed mobility skills 3. Declining transfer skills 4. Inability to ambulate without assistance 5. Increased time to complete ADL/mobility tasks 6. Increased risk for falls Patient is assessed as a Moderate 23175 complexity based on the following: History: 74-year-old male presenting with significant/complex past medical history as stated above Examination: Demonstrates impairment in strength, motor control, balance and mobility level with underlying impairments and functional limitations as exhibited above as well as a deficit score of 81.38% utilizing the [facility] AM-PAC mobility inpatient Short form Presentation: Evolving Decision Making: Moderate Goals: Goals X1 week 1. Supine-Sit min assist of 1 (NOT MET) 2. Sit-Supine mod assist of 1 for lower extremities (Not Met) 3. Sit-Stand mod assist of 1 ( Met pull to stand) 4. Stand-Sit mod assist of 1 (MET) 5. Bed-Chair mod assist of 1 step turn with FWW (Not MET) 6. Chair-Bed mod assist of 1 step turn with FWW (Not MET) PLAN OF CARE/TREATMENT PLAN: 1-2x/day, 7 days/ week x 1 week Plan of care has been reviewed with the MOLDING ASSOCIATE providing the service under Physical therapy direction. Initiate physical therapy intervention for strengthening, bed mobility, transfers, gait, stairs, balance training, use of assistive device. DISCHARGE RECOMMENDATIONS: SNF TREATMENT CODE/TIME: 95425/ [id number]
[2024-10-14] MEDS: cloNIDine 0.1 MG TAB PO (17:04)
[2024-10-15] MEDS: Levothyroxine 150 MCG TAB PO (05:24)
[2024-10-15] MEDS: Enoxaparin 40 MG/0.4 ML SYR SC (05:24)
[2024-10-15 07:14] VITALS: BP 179/80; PULSE 61; RESP 20; TEMP 36.4; O2SAT 93
[2024-10-15] MEDS: Umeclidinium 7 CAP INHALER IH (08:24)
[2024-10-15] MEDS: Divalproex Sodium 500 MG TAB.ER.24H 1500 MG PO (09:21)
[2024-10-15] MEDS: Metoprolol CR 100 MG TABCR PO (09:21)
[2024-10-15] MEDS: Cholecalciferol (Vitamin D3) 1,000 UNIT TAB 1000 UNITS PO (09:21)
[2024-10-15] MEDS: Losartan 25 MG TAB PO (09:21)
[2024-10-15] MEDS: predniSONE 10 MG TAB 30 MG PO (09:21)
[2024-10-15] MEDS: Tamsulosin 0.4 MG CAPCR PO (09:21)
[2024-10-15] MEDS: Cefpodoxime 200 MG TAB PO (09:21)
[2024-10-15] MEDS: Cyanocobalamin 500 MCG TAB 1000 MCG PO (09:22)
[2024-10-15] MEDS: lamoTRIgine 100 MG TAB 250 MG PO (09:22)
--- NOTE | 2024-10-15 09:45 | PDOC.CMDIS ---
Date of service: 10/15/24 Time of Service: 09:45 LACE Index Scoring Tool Questions: Length of Stay (in days): 7 - 13 Was the patient admitted via the E.D.?: No E.D. Visits: 0 Answers: Total Score: 5 Risk of Readmission: Low Risk Care Management Discharge Plan Reason for Hospitalization: COPD Discharge Plan: Discharge to [place] for [facility]. Transportation is provided by [facility] [place] w/c Toy will follow up with facility/community providers and his discharge plan of care as directed. Patient/Family Education Needs: Review discharge instructions and plan to follow up after discharge. Discuss ask me three:. Services Needed at Discharge: Assisted Facility (Coordinated by CM) and Transportation (Coordinated by CM) SDOH Health Related Social Needs: Health related social needs feeling lonely/isolated (Z60.8)
--- NOTE | 2024-10-15 11:20 | DSE_ITS ---
Date of service: 10/15/24 Time of Service: 11:21 DS: Diagnosis Discharge Diagnosis (1) Pneumonia: Status: Acute (2) Acute respiratory failure with hypoxia: Status: Acute (3) Delirium: Status: Acute (4) Hypertension: (5) Hyperkalemia: Status: Acute (6) JUNIOR (acute kidney injury): Status: Acute (7) Incomplete emptying of bladder: Status: Acute (8) Diastolic heart failure: (9) Tremor: Status: Acute Discharge Plan Disposition Patient Disposition: [facility](SNF) Condition: Good Discharge Details Reason For Visit: COPD Admit Date/Time: 10/06/24 13:58 Admit Provider: Abelardo Dewey Attending Provider: Abelardo Dewey Primary Care Provider: MARTÍN MACARIOVA [facility] Course Hospital Course: Per H+P: This is a 74-year-old gentleman who was at [facility] but was transferred down here due to no bed availability at that facility. In reviewing the HPI is a 74-year-old gentleman with multiple medical problems including severe COPD reflux Parkinson's who presented to the hospital 2 days ago with increasing cough. Patient was treated for pneumonia with Augmentin and Doxy which he states he has been taking. Unfortunately this morning he developed worsening shortness of breath and came back into the ED for evaluation and treatment. In reviewing the diagnostic information the patient was noted to have hyperkalemia with a potassium of 5.8 without benign white count mild anemia with a hemoglobin of 10.8 hematocrit 33.3 and elevated BUN to creatinine ratio of 39/1.33 and a normal procalcitonin. I do not see any imaging documentation but he was transferred down here after given Rocephin and Doxy again via IV. Patient does give a fairly linear history but is very confused at times. Unfortunately his is not available to augment this history at this point. Patient was initially on outpatient abx, this was changed over to cefepime and cipro to broaden coverage. However, patient had a rxn to cipro and was ultimately treated with azithromycin. Cefepime was ultimaterly changed to cefpodoxime. PAtient was also started on IV steroids but had issues with confusion, felt to be steroid induced psychosis. These were changed over to PO prednisone 40mg PO daily with good response in patient's mentation. These were titrated here to 30mg with plans to titrate further after discharge. Worked with PT/OT, plan to discharge to SNF. Will continue 5 ore days of cefpodoxime alone along with long prednisone taper. To continue other resp meds (Anoro, Incuse), Discharge to [facility]. To follow with PCP. Patient was held until 10/15 at request of discharge facility, reason being given as :Too late to accept admission, repeat d/c summary prepaered at their request to reflect date of discharge as 10/15. Plan has not changed overnight and patient remains stable. Home Meds and New Rx's Prescriptions: New prednisone 10 mg Tablet See Taper PO DAILY 5 Days Qty: 15 0RF Taper: Generic Taper 3 mg Daily for 3 Days and 0 Hour 2 mg Daily for 3 Days and 0 Hour 1 mg Daily for 3 Days and 0 Hour cefpodoxime 200 mg Tablet 200 mg PO BID 5 Days Qty: 10 0RF Changed sildenafil (pulm.hypertension) 20 mg tablet 20 mg PO TID MDD 3 tabs Qty: 30 3RF Rx Instructions: 20 - 60 mg orally as directed. Do NOT use more than max dosage in 24 hours. No Action Excedrin Extra Strength 250-250-65 mg tablet 1 tab PO Q6H PRN cholecalciferol (vitamin D3) 25 mcg (1,000 unit) capsule 25 mcg PO DAILY cyanocobalamin (vitamin B-12) [Vitamin B-12] 1,000 mcg tablet 1,000 mcg PO DAILY Incruse Ellipta 62.5 mcg/actuation blister with device 1 inh inhalation DAILY Qty: 30 12RF losartan 25 mg tablet 25 mg PO DAILY divalproex 500 mg tablet extended release 24 hr 1,500 mg PO DAILY epinephrine 0.3 mg/0.3 mL auto-injector 0.3 mg IM Q5-15M PRN Rx Instructions: do not exceed 3 doses per episode levothyroxine 150 mcg tablet 150 mcg PO DAILY red yeast rice 600 mg tablet 600 mg PO BID Rx Instructions: give with meal/snack Aimovig Autoinjector 70 mg/mL auto-injector 140 mg subcut QMONTH furosemide 40 mg tablet 40 mg PO DAILY Patient Comments: takes 40-80 if edema is noted or worsened. metoprolol succinate 100 mg tablet extended release 24 hr 100 mg PO DAILY lamotrigine 100 mg tablet 250 mg PO DAILY alfuzosin 10 mg tablet extended release 24 hr 10 mg PO DAILY Qty: 90 4RF Rx Instructions: administer after the same meal each day albuterol sulfate 90 mcg/actuation HFA aerosol inhaler 2 puff inhalation QID PRN (Reason: shortness of breath or wheezing) Qty: 8.5 6RF clotrimazole 1 % cream 1 applic topical BID PRN (Reason: itch) Qty: 45 1RF Anoro Ellipta 62.5-25 mcg/actuation blister with device 1 inh inhalation DAILY Discharge Instructions Referrals: NATHANIEL GOYAL MD [Primary Care Provider] - 10/28/24 10:40 am Activity:: Activity as Tolerated Equipment/Supplies:: No Equipment Needed Diet:: As Tolerated Discharge Orders Discharge Orders: Discharge Order (Routine); Ordered 10/15/24 Ordered By: Steven Bustillos DS: Summary Time Spent with Patient providing and/or coordinating discharge services: Greater than 30 minutes Status at Discharge Functional status at discharge: uses cane/walker Overall status at discharge: patient is not back to baseline Mental Status: mental status grossly normal Speech and Movement: speech and movement normal Mood: congruent mood Affect: normal affect Quality:SDOH Health Related Social Needs: Health related social needs feeling lonely/isolated (Z 60.8) Exam Psych Mental Status: mental status grossly normal Speech and Movement: speech and movement normal Mood: congruent mood Affect: normal affect DS: Data Vitals/I&O Vitals and I&O: Vital Signs Temperature 36.4 C L 10/15/24 07:14 Temperature Source Temporal Artery Scan 10/15/24 07:14 Pulse 61 10/15/24 07:14 Pulse Rhythm Regular 10/06/24 14:42 Respiratory Rate 20 10/15/24 07:14 Respiratory Effort Labored 10/06/24 14:42 Respiratory Depth Deep 10/06/24 14:42 Respiratory Pattern Normal 10/06/24 14:42 Blood Pressure 179/80 H 10/15/24 07:14 Pulse Oximetry 93 10/15/24 07:14 Oxygen Delivery Method Room Air 10/15/24 07:14 Oxygen Flow Rate 0 10/15/24 07:14 Pain Level 0 10/14/24 15:51 Comment RN notified 10/12/24 08:08 Intake & Output 10/14/24 10/14/24 10/15/24 11:59 23:59 11:59 Intake Total 200 / 200 Output Total 350 / 950 600 / 950 500 / 500 Balance -350 / -750 -400 / -750 -500 / -500 Weight 138.5 kg Intake: Oral 200 / 200 Output: Urine 350 / 950 600 / 950 500 / 500 Other: Urine Color Yellow Yellow Yellow Urine Appearance Cloudy Clear Urine Odor Normal Normal PFSH All Active Problems (Updated 10/09/24 @ 13:38 by Stephan Perez MD) Tremor (Acute) Acute respiratory failure with hypoxia (Acute) Delirium (Acute) Alcohol abuse (Chronic) Mitral stenosis (Acute) Moderate mitral regurgitation (Acute) Severe tricuspid regurgitation (Acute) Fibrillation, atrial (Chronic) Hydrothorax (Acute) Cholelithiases (Acute) Cirrhosis (Acute) Ascites (Acute) Total bilirubin, elevated (Acute) Elevated d-dimer (Acute) Elevated brain natriuretic peptide (BNP) level (Acute) Elevated MCV (Acute) Thrombocytopenia (Chronic) Elevated INR (Acute) Pleural effusion (Acute) Respiratory distress (Acute) JUNIOR (acute kidney injury) (Acute) Pneumonia (Acute) Hyperkalemia (Acute) Renal cyst (Acute) Incomplete emptying of bladder (Acute) Recurrent UTI (Acute) Dyspnea on exertion (Acute) Hypoventilation (Acute) Cerebellar atrophy (Acute) Autonomic orthostatic hypotension (Acute) BPH w urinary obs/LUTS (Acute) Benign paroxysmal vertigo (Acute) Anemia (Chronic) Sensorineural hearing loss, bilateral (Acute) Dizziness (Acute) Memory changes (Acute) Neuropathy, idiopathic (Acute) IBS (irritable bowel syndrome) (Chronic) Frequent falls (Acute) Diplopia (Acute) Localized edema (Acute) Nail dystrophy (Acute) Lumbar stenosis (Acute) Post concussion syndrome (Acute) Aug and Dec, 2021 Syncope (Chronic) Cervical myelopathy (Acute) Tremor (Acute) Migraine aura without headache (Acute) Left arm pain (Acute) Babinski reflex (Acute) Medical History Oral cancer Spinal stenosis in cervical region Snoring Neck pain Meniscus, lateral, derangement Amnesia Talipes planovalgus Sustained SVT PTSD (post-traumatic stress disorder) Parkinsonism Obstructive sleep apnea History of neck pain MRSA (methicillin resistant Staphylococcus aureus) Hypomania Hydronephrosis Essential tremor Erectile dysfunction Chronic deep venous thrombosis Cervical spondylosis with myelopathy Cervical radiculopathy Bronchospasm Retrograde amnesia Depression Migraine headache with aura Impaired glucose tolerance Nocturia Achilles tendinitis Degeneration of intervertebral disc of lumbosacral region Microscopic hematuria History of IBS GERD (gastroesophageal reflux disease) Exercise induced bronchospasm Lymphedema Deep vein thrombosis Diastolic heart failure Supraventricular tachycardia Hypertension BPPV (benign paroxysmal positional vertigo) Chronic posttraumatic stress disorder Anxiety Bipolar disorder Anemia of chronic disease Obesity Hyperlipidemia Hypothyroidism Multiple lipomas Malignant tumor of tongue Surgical History [place] [facility] [place] of esophagogastroduodenoscopy (EGD) History of excision of pilonidal cyst 1964 History of back surgery 1988 History of excision of lesion tongue x 2 2012 History of orthopedic surgery 07/24/2013 S/P total knee arthroplasty Hx of colonoscopy 10/07/19 History of tonsillectomy H/O hernia repair Artificial knee joint present R TKA 2014 Family History Father , AT 73 KIDNEY FAILURE Bladder cancer Renal failure Stomach ulcer Mother , AT 85 Arthritis Migraine Obesity Son Migraine Sister Arthritis Social History Smoking/Tobacco Use Status: Former Tobacco Use Quit Date: 08/21/88 Tobacco: How many years used: 30 Smoking risk assessment performed?: Yes Alcohol Intake: former Details: QUIT 2007 Drug use: Never Household members: spouse Housing: house Number of Children: 3 number of grandchildren: 5 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 Time Spent with Patient Time Spent with Patient: 45-69 minutes Time was spent: preparing to see the patient(eg.review tests), obtaining and/or reviewing separately otained hiistory, ordering medications,tests, procedures and care coordination
--- NOTE | 2024-10-15 12:03 | PT.INTREAT ---
PT Notes Visit Reasons: COPD 10/15/2024 SUBJECTIVE: Pt reports he is feeling better and is looking forward to going to [facility] for rehab today. OBJECTIVE:?Pt alert conversant. His barron catheter was removed. Treatment: bed mobility; mod A of 1 semirecline to sit at EOB, Pt able to get BLE off edge of bed without assistance. Sit to stand at FWWwith Min A of 2 x 3 trials. able to perform slight unweighting of B feet in prep for step turn transfer. seated therex, marching, LAQ, Ankle Pumps, B scapular retraction, AAROM Left shoulder flexion, Abduction and ER x 10 reps Assessment: Patient is a 74year old male referred to physical therapy services with the diagnosis of pneumonia. Pt with improvement in motor control/ strength BLE and BUE. Pt noted some discomfort along Left lateral upper arm. Pt able to participate in AAROM to left shoulder through limited ROM without pain. His pain is reproducable with abduction and flexion >90 degrees. Plan: Expect d/c to rehab today Billing Charges:[id number]/ [id number]
== END 2024-10-15 11:21 | disposition skilled nursing facility (03) | DRG 193 ==
PROVIDERS: Family Medicine; Admitting Provider Hospitalist; PCP Family Medicine; Responsible Provider Hospitalist; Visit Provider Hospitalist
DX: J18.9 Pneumonia, unspecified organism (principal); J96.01 Acute respiratory failure with hypoxia; N17.9 Acute kidney failure, unspecified; I50.30 Unspecified diastolic (congestive) heart failure; F05 Delirium due to known physiological condition; M47.12 Other spondylosis with myelopathy, cervical region; Z68.41 Body mass index [BMI] 40.0-44.9, adult; E87.5 Hyperkalemia; I11.0 Hypertensive heart disease with heart failure; R33.8 Other retention of urine; K21.9 Gastro-esophageal reflux disease without esophagitis; D64.9 Anemia, unspecified; F10.10 Alcohol abuse, uncomplicated; R79.1 Abnormal coagulation profile; D69.6 Thrombocytopenia, unspecified; I48.91 Unspecified atrial fibrillation; I08.1 Rheumatic disorders of both mitral and tricuspid valves; H90.3 Sensorineural hearing loss, bilateral; K58.9 Irritable bowel syndrome, unspecified; R29.6 Repeated falls; G60.9 Hereditary and idiopathic neuropathy, unspecified; M48.02 Spinal stenosis, cervical region; M47.22 Other spondylosis with radiculopathy, cervical region; E03.9 Hypothyroidism, unspecified; E78.5 Hyperlipidemia, unspecified; F31.9 Bipolar disorder, unspecified; F43.12 Post-traumatic stress disorder, chronic; M51.379 Other intervertebral disc degeneration, lumbosacral region without mention of lumbar back pain or lower extremity pain; Z96.651 Presence of right artificial knee joint; G25.1 Drug-induced tremor; T42.6X5A Adverse effect of other antiepileptic and sedative-hypnotic drugs, initial encounter; Z87.440 Personal history of urinary (tract) infections
CPT/HCPCS: 36410; 00123; 36415; 71250; 80053; 82805; 84145; 87040; 87449; 87637; 93306; 94640; 97110; 97162; 97530; J1650; 81003; 81015; 82140; 85025; 86140; 94664; 94667; 94668; 94760; 99222; 99232; 99233; 99239; J0360; J0692; J0744; J1200; J1630; J2060; J2919; J3490; J7512; J7620

== ENCOUNTER → 2024-12-17 14:37 | Outpatient (BNVA) | payer MEDICARE, BC, SELFPAY | PROVIDERS: Referring Provider Family Medicine; Visit Provider Physician Assistant Surgical | DX: J45.909 Unspecified asthma, uncomplicated (principal); G47.33 Obstructive sleep apnea (adult) (pediatric); J18.9 Pneumonia, unspecified organism; R06.09 Other forms of dyspnea | CPT/HCPCS: 99214 ==

== ENCOUNTER → 2024-12-25 08:04 | Outpatient (BNVA) | payer MEDICARE, BC, SELFPAY | PROVIDERS: Referring Provider Family Medicine; Visit Provider Psychiatry & Neurology Neurology | DX: G43.109 Migraine with aura, not intractable, without status migrainosus (principal); R55 Syncope and collapse; F07.81 Postconcussional syndrome; G95.9 Disease of spinal cord, unspecified; G20.C Parkinsonism, unspecified | CPT/HCPCS: 99215 ==

== ENCOUNTER → 2025-01-16 07:46 | Outpatient (BNVA) | payer MEDICARE, BC, SELFPAY | PROVIDERS: Referring Provider Family Medicine; Visit Provider Nurse Practitioner Gerontology | DX: N39.0 Urinary tract infection, site not specified (principal); N40.1 Benign prostatic hyperplasia with lower urinary tract symptoms; N13.8 Other obstructive and reflux uropathy; R33.9 Retention of urine, unspecified; N28.1 Cyst of kidney, acquired | CPT/HCPCS: 99214 ==

== ENCOUNTER → 2025-02-19 07:39 | Outpatient (BNVA) | payer MEDICARE, BC, SELFPAY | PROVIDERS: Visit Provider Nurse Practitioner Gerontology | DX: N39.0 Urinary tract infection, site not specified (principal); N40.1 Benign prostatic hyperplasia with lower urinary tract symptoms; N13.8 Other obstructive and reflux uropathy; R33.9 Retention of urine, unspecified; N28.1 Cyst of kidney, acquired | CPT/HCPCS: 99213 ==

== ENCOUNTER → 2025-02-27 08:18 | Outpatient (BNVA) | payer MEDICARE, BC, SELFPAY | PROVIDERS: Visit Provider Psychiatry & Neurology Neurology | DX: G20.C Parkinsonism, unspecified (principal); I10 Essential (primary) hypertension | CPT/HCPCS: 11104; 11105; 99215 ==

== ENCOUNTER → 2025-03-17 14:38 | Outpatient (BNVA) | payer MEDICARE, BC, SELFPAY | PROVIDERS: Visit Provider Physician Assistant Surgical | DX: J45.909 Unspecified asthma, uncomplicated (principal); J44.9 Chronic obstructive pulmonary disease, unspecified; G47.33 Obstructive sleep apnea (adult) (pediatric); M48.02 Spinal stenosis, cervical region; G99.2 Myelopathy in diseases classified elsewhere; Z87.891 Personal history of nicotine dependence | CPT/HCPCS: 99214 ==